=== PATIENT | female | born 1955 | race Caucasian/White ===

== ENCOUNTER 2022-07-06 17:56 | Emergency (ER) | payer OTHER ==
--- OUTSIDE RECORDS SUMMARY | 2022-07-06 17:59 | XMS REPORT | Continuity of Care Document ---
:1955 Author Organization [facility] t Address [address] [place] [address] [place] [id number] Care Team Providers Name Role Phone Jeanne Attending Clinician Unavailable Mau Padilla Attending Clinician [phone] Mau Padilla Attending Clinician Unavailable Jeanne Admitting Clinician Unavailable Mau Padilla Admitting Clinician Unavailable Payers Payer Name Policy Type Policy Number Effective Date Expiration Date S ource [employer]MA[employer] (MEDICARE [id number] 2021 REPLACEMENT/ADVANT 00:00:00 AGE - PPO) [place]: [id number] 2021 NOVMinuteBuzzS EyeLock 00:00:00 [place] [id number] ADVANTAGE (HMO) 00:00:00 Problems Condition Condition Condition Status Onset Resolution Last Treating Co mments Source Name Details Category Date Date Treatment Clinician Date Osteoarthr Osteoarthr Problem Active A zalea itis of itis of 5-31 [facility] right knee Right Knee 00:00: di c joint Joint 00 Sports Medicin e Osteoarthr Osteoarthr Problem Active 2020-02 A zalea itis of itis of 1-11 [facility] knee Knee 00:00: dic 00 Sports Medicin e Allergies, Adverse Reactions, Alerts Allergy Allergy Status Severity Reaction(s) Onset Inactive Treating Comm ents Source Name Type Date Date Clinician levoflox DA Active DC RASH-UNKNOWN 2020-02 HC A acin 03-24 [place] 00:00: [facility] 00 [facility] Levaquin Allergy Active Rash 2020-02 Shanna to 2 Orthope substanc 00:00: dic e 00 Sports Medicin e levoflox DA Active DC RASH-UNKNOWN 2020-02 HC A acin 03-15 [place] 00:00: David 00 [facility] No Known DA Active U 2000-02 [facility] Contrast 0-16 [place] Allergie 00:00: [facility] s 00 dic [facility] No Known DA Active U 2000-02 [facility] Drug 016 [place] Allergie 00:00: Orthope s 00 dic Hosp[facility] No Known DA Active U 2000-02 [facility] Food 0-16 [place] Allergie 00:00: Orthope s 00 dic [facility] No Known DA Active U 2000-02 [facility] Other 016 [place] Allergie 00:00: Orthope s 00 dic [facility]ospita [facility] Social History Smoking Status Start Date Stop Date Source Never Smoker [facility] Medications Ordered Filled Start Stop Current Ordering Indication Dosage Frequency Signature Comments Components Source Medication Medication Date Date Medication? Clinician (SIG) Name Name Augmentin Augmentin No 1 TID Augmentin Shanna 500 mg-125 500 mg-125 500 mg-125 [facility] mg tablet mg tablet mg tablet dic Take 1 Take 1 Take 1 Sports tablet 3 tablet 3 tablet 3 Med icin times a day times a day times a e by oral by oral day by route for 3 route for 3 oral route days. days. for 3 days. meloxicam meloxicam No meloxicam Shanna 15 mg 15 mg 15 mg [facility] tablet TAKE tablet TAKE tablet dic 1 TABLET BY 1 TABLET BY TAKE 1 Sports MOUTH EVERY MOUTH EVERY TABLET BY Medicin DAY IN THE DAY IN THE MOUTH e MORNING MORNING EVERY DAY IN THE MORNING methylpredn methylpredn No methylpred Shanna isolone 4 isolone 4 nisolone 4 [facility] mg tablets mg tablets mg tablets dic in a dose in a dose in a dose Sports pack TAKE 6 pack TAKE 6 pack TAKE Medicin TABLETS ON TABLETS ON 6 TABLETS e DAY 1 DAY 1 ON DAY 1 DIRECTED ON DIRECTED ON PACKAGE AND PACKAGE AND DIRECTED DECREASE BY DECREASE BY ON PACKAGE 1 TAB EACH 1 TAB EACH AND DAY FOR A DAY FOR A DECREASE TOTAL OF 6 TOTAL OF 6 BY 1 TAB DAYS DAYS EACH DAY FOR A TOTAL OF 6 DAYS Synthroid Synthroid No Synthroid Shanna 125 mcg 125 mcg 125 mcg Orthop e tablet TAKE tablet TAKE tablet dic 1 TABLET BY 1 TABLET BY TAKE 1 Sports MOUTH EVERY MOUTH EVERY TABLET BY Medicin DAY IN THE DAY IN THE MOUTH e MORNING MORNING EVERY DAY IN THE MORNING amoxicillin amoxicillin No amoxicilli Shanna 500 500 n 500 Orthope mg-potassiu mg-potassiu mg-potassi dic m m Sports clavulanate clavulanate clavulanat Medicin 125 mg 125 mg e 125 mg e tablet TAKE tablet TAKE tablet 1 TABLET BY 1 TABLET BY TAKE 1 MOUTH THREE MOUTH THREE TABLET BY TIMES A DAY TIMES A DAY MOUTH FOR 3 DAYS FOR 3 DAYS THREE TIMES A DAY FOR 3 DAYS Medrol Medrol No Medrol Shanna (Kee) 4 mg (Kee) 4 mg (Kee) 4 mg Orth[facility] tablets in tablets in tablets in dic a dose pack a dose pack a dose Sports Take 1 Take 1 pack Take Medici n tablet by tablet by 1 tablet e mouth as mouth as by mouth directed directed as Take as Take as directed directed on directed on Take as package package directed on package meloxicam meloxicam No meloxicam Shanna 15 mg 15 mg 15 mg [facility] tablet TAKE tablet TAKE tablet dic 1 TABLET BY 1 TABLET BY TAKE 1 Sports MOUTH EVERY MOUTH EVERY TABLET BY Medicin DAY IN THE DAY IN THE MOUTH e MORNING MORNING EVERY DAY IN THE MORNING Synthroid Synthroid No Synthroid Shanna 125 mcg 125 mcg 125 mcg Orthop e tablet TAKE tablet TAKE tablet dic 1 TABLET BY 1 TABLET BY TAKE 1 Sports MOUTH EVERY MOUTH EVERY TABLET BY Medicin DAY IN THE DAY IN THE MOUTH e MORNING MORNING EVERY DAY IN THE MORNING amoxicillin amoxicillin No amoxicilli Shanna 500 mg 500 mg n 500 mg Orth[facility] tablet TAKE tablet TAKE tablet dic 1 TABLET BY 1 TABLET BY TAKE 1 Sports MOUTH THREE MOUTH THREE TABLET BY Medicin TIMES A DAY TIMES A DAY MOUTH e WITH MEALS WITH MEALS THREE TIMES A DAY WITH MEALS amoxicillin amoxicillin No amoxicilli Shanna 500 500 n 500 Orthope mg-potassiu mg-potassiu mg-potassi dic m m Sports clavulanate clavulanate clavulanat Medicin 125 mg 125 mg e 125 mg e tablet TAKE tablet TAKE tablet 1 TABLET BY 1 TABLET BY TAKE 1 MOUTH THREE MOUTH THREE TABLET BY TIMES A DAY TIMES A DAY MOUTH FOR 3 DAYS FOR 3 DAYS THREE TIMES A DAY FOR 3 DAYS azithromyci azithromyci No azithromyc Shanna n 250 mg n 250 mg in 250 mg Or thope tablet TAKE tablet TAKE tablet dic 2 TABLETS 2 TABLETS TAKE 2 Spo rts BY MOUTH BY MOUTH TABLETS BY M edicin TODAY, THEN TODAY, THEN MOUTH e TAKE 1 TAKE 1 TODAY, TABLET TABLET THEN TAKE DAILY FOR 4 DAILY FOR 4 1 TABLET DAYS DAYS DAILY FOR 4 DAYS cephalexin cephalexin No cephalexin Shanna 500 mg 500 mg 500 mg [facility] tablet TAKE tablet TAKE tablet dic 1 TABLET BY 1 TABLET BY TAKE 1 Sports MOUTH TWICE MOUTH TWICE TABLET BY Medicin A DAY FOR A DAY FOR MOUTH e 10 DAYS 10 DAYS TWICE A DAY FOR 10 DAYS codeine 10 codeine 10 No codeine 10 Shanna mg-guaifene mg-guaifene mg-guaifen Orthope sin 100 sin 100 esin 100 dic mg/5 mL mg/5 mL mg/5 mL Sports oral liquid oral liquid oral M edicin TAKE 1 TSP TAKE 1 TSP liquid e BY MOUTH BY MOUTH TAKE 1 TSP EVERY 6 EVERY 6 BY MOUTH HOURS HOURS EVERY 6 NEEDED FOR NEEDED FOR HOURS COUGH COUGH NEEDED FOR COUGH gatifloxaci gatifloxaci No gatifloxac Shanna n 0.5 % eye n 0.5 % eye in 0.5 % Orthope drops 1 drops 1 eye drops dic DROP IN DROP IN 1 DROP IN Spor ts BOTH EYES BOTH EYES BOTH EYES Medicin FOUR TIMES FOUR TIMES FOUR TIMES e A DAY FOR 7 A DAY FOR 7 A DAY FOR DAYS. DAYS. 7 DAYS. Medrol Medrol No Medrol Shanna (Kee) 4 mg (Kee) 4 mg (Kee) 4 mg Orth[facility] tablets in tablets in tablets in dic a dose pack a dose pack a dose Sports Take 1 Take 1 pack Take Medici n tablet by tablet by 1 tablet e mouth as mouth as by mouth directed directed as Take as Take as directed directed on directed on Take as package package directed on package meloxicam meloxicam No meloxicam Shanna 15 mg 15 mg 15 mg [facility] tablet TAKE tablet TAKE tablet dic 1 TABLET BY 1 TABLET BY TAKE 1 Sports MOUTH EVERY MOUTH EVERY TABLET BY Medicin DAY IN THE DAY IN THE MOUTH e MORNING MORNING EVERY DAY IN THE MORNING Synthroid Synthroid No Synthroid Shanna 125 mcg 125 mcg 125 mcg Orthop e tablet TAKE tablet TAKE tablet dic 1 TABLET BY 1 TABLET BY TAKE 1 Sports MOUTH EVERY MOUTH EVERY TABLET BY Medicin DAY IN THE DAY IN THE MOUTH e MORNING MORNING EVERY DAY IN THE MORNING Vital Signs Vital Name Observation Time Observation Value Comments Source Height 2022-04-08 00:00:00 67 [in_i] [facility] BMI (Body Mass 2022-04-08 00:00:00 42.8 kg/m2 [facility] Index) Sports Medicine Body Weight 2022-04-08 00:00:00 273 [lb_av] [facility] Height 2021-07-15 00:00:00 67 [in_i] [facility] BMI (Body Mass 2021-07-15 00:00:00 42.8 kg/m2 [facility] Index) Sports Medicine Body Weight 2021-07-15 00:00:00 273 [lb_av] [facility] Procedures Procedure Date / Time Performed Performing Clinician [facility] e XR, knee, 1 or 2 view 2022-04-08 00:00:00 [facility] XR, knee, 1 or 2 view 2021-10-21 00:00:00 [facility] Arthroplasty of Knee 2021-01-21 00:00:00 [facility] Arthroscopy of Knee [facility] Plan of Care Planned Activity Planned Date Details Comments Source Instructions [facility] Encounters Start End Encounter Admission Attending Care Care Encounter Source Date/Time Date/Time Type Type Clinicians Facility Department ID 2022-04-08 2022-04-08 Outpatient FOG_Mohsen_R AO AO [id number] Shanna 00:00:00 00:00:00 [place] [id number] Ortho pe dic Sports Medicin e 2022-04-08 2022-04-08 Mau San AOSAMMY [place] - Ortho Shanna 00:00:00 00:00:00 MD Mohsen: Lilian Uribe [id number] [facility] [place], [address] [place] [address] , Ph. [phone] 2021-12-10 2021-12-10 Outpatient FOG_Mohsen_R AOSM AO [id number] Shanna 00:00:00 00:00:00 Santos [id number] Ortho pe dic Sports Medicin e 2021-12-10 2021-12-10 Outpatient FOG_Burke_R AOSM AOSM [id number] Shanna 00:00:00 00:00:00 Santos [id number] Ortho pe dic Sports Medicin e 2021-12-10 2021-12-10 Outpatient FOG_Burke_R AOSM AOSM [id number] Shanna 00:00:00 00:00:00 [place] [id number] Ortho pe dic Sports Medicin e 2021-12-10 2021-12-10 Outpatient FOG_Burke_R AOSM AOSM [id number] Shanna 00:00:00 00:00:00 Santos [id number] Ortho pe dic Sports Medicin e 2021-10-21 2021-10-21 Outpatient FOG_Burke_R AOSM AOSM [id number] Shanna 00:00:00 00:00:00 Santos [id number] Ortho pe dic Sports Medicin e 2021-10-21 2021-10-21 Mau San AOSM [place] - Ortho Shanna 00:00:00 00:00:00 MD Mohsen: Lilian Uribe [id number] [place], [place] [address], [place] [address] , Ph. [phone] 2021-10-21 2021-10-21 Outpatient Mohsne, AOSM AOSM [id number] 00:00:00 00:00:00 Mau San [id number] 2021-10-18 2021-10-18 Outpatient FOG_Burke_R AOSM AOSM [id number] Shanna 00:00:00 00:00:00 Santos [id number] Ortho pe dic Sports Medicin e 2021-10-16 2021-10-16 Outpatient FOG_Burke_R AOSM AOSM [id number] Shanna 00:00:00 00:00:00 [place] [id number] Ortho pe dic Sports Medicin e 2021-09-02 2021-09-02 Outpatient FOG_Burke_R AOSM AOSM [id number] Shanna 00:00:00 00:00:00 Santos [id number] Ortho pe dic Sports Medicin e 2021-07-16 2021-07-16 Outpatient FOG_Burke_R AOSM AOSM [id number] Shanna 10:09:00 10:09:00 Santos [id number] Ortho pe dic Sports Medicin e 2021-07-15 2021-07-15 Outpatient FOG_Burke_R AOSM AOSM [id number] Shanna 02:13:00 02:13:00 [place] [id number] Ortho pe dic Sports Medicin e 2021-07-15 2021-07-15 Mau Jaswinder AOSM [place] - Ortho Shanna 00:00:00 00:00:00 MD Mohsen: Lilian Barron [facility] [id number] [place], [address], [place] [address] , Ph. [phone] 2021-07-15 2021-07-15 Outpatient JOSE Padilla AOSM [id number] 00:00:00 00:00:00 Mau San [id number] 2021-01-21 2021-01-22 Inpatient EL MANOJ PadillaTO SURG [id number] [facility] 07:32:00 12:43:00 Mau Bradley [facility]ope [facility] Hosp[facility] 2021-01-13 2021-01-13 Outpatient MANOJ Padilla LABO [id number] [facility] 17:07:00 17:07:00 Mau Abbasi [facility] Results Test Description Test Time Test Comments Results Result [facility] e Comments - XR KNEE 1 OR 2 V 2021-01-22 [facility] 12:49:00 [facility] 1955 Sex: F Patient Name: SHAYNE MAGANA Unit No: [id number] EXAMS: CPT CODE: [id number] XR KNEE 1 OR 2 V [place] [id number] IMAGES PROVIDED: 2 FINDINGS: Postoperative changes from right total knee arthoplasty demonstrated without evidence of immediate complication. No acute fracture is visualized. IMPRESSION: Postoperative exam as above. at 1249 Reported and signed by: Gorge Ernandez M.D. CC: Mau Padilla MD Technologist: JUS BOYLE. RT(R) Transcribed D/ (9978) [facility]: [facility] [address] [facility] PHYS: Mau Martin MD : 1955 AGE: 65 SEX: F [place], [place] [address] LOC: Y.310 A PHONE #: [phone] EXAM DATE: 01/21/2021 STATUS: DIS IN FAX #: [phone] RAD #: [id number] D/C DT 01/22/2021 PAGE 1 Signed Report Patient Name: SHAYNE MAGANA Unit No: [id number] EXAMS: CPT CODE: [id number] XR KNEE 1 OR 2 V RT [id number] (Continued) Orig Print D/T: S: 01/22/2021 (1252) [facility] NAME: SHAYNE MAGANA [address] [facility] PHYS: Mau Martin MD : 1955 AGE: 65 SEX: F [place], [place] [address] LOC: Y.310 A PHONE #: [phone] EXAM DATE: 01/21/2021 STATUS: DIS IN FAX #: [phone] RAD #: [id number] D/C DT 01/22/2021 PAGE 2 Signed Report BASIC METABOLIC PANEL 2021-01-22 06:45:00 Test Item Value Reference Range Interpretation Comme nts SODIUM (test code = NA) 140 mmol/L 136-145 N POTASSIUM (test code = K) 4.8 mmol/L 3.5-5.1 N CHLORIDE (test code = CL) 101.0 mmol/L 98-107 N CARBON DIOXIDE (test code = 25.5 mmol/L 21-32 N CO2) GLUCOSE (test code = GLU) 126 mg/dL 70-110 H BLOOD UREA NITROGEN (test code 12 mg/dL 7-18 N = BUN) GLOMERULAR FILTRATION RATE 66.0 >60 U nit of measure: mL/min/1.73 (test code = GFR) [id number] Range:Healthy Adults >90 mL/m in/1.73 m2 For Chronic Kidney Disease: Stage II Mild Decreas e in GFR 60-90 Stage III Moder ate Decrease in GFR 30-59 St age IV Severe Decrease in GFR 15-29 Stage V Kidney Failure <15 CREATININE (test code = CREAT) 0.86 mg/dL 0.55-1.30 N CALCIUM (test code = CA) 8.9 mg/dL 8.2-10.1 N SPECIMEN COMMENT: POD #[id number] 06:07:00 Test Item Value Reference Range Interpretation Comments HEMOGLOBIN (test code = HGB) 12.8 g/dL 12-16 N HEMATOCRIT (test code = HCT) 41.3 % 37-47 N SPECIMEN COMMENT: POD #1Novel Coronavirus 2019 [id number] 03:17:00 Test Item Value Reference Range Interpretation Comments Novel Coronavirus Negative Negative Positive r esults are 2019 Inhouse (test indicativ e of the presence code = COVNONPUI) ofSARS-CoV -2 RNA, clinical correlation wit h patient historyand othe r diagnostic info rmation is necessary to determinepatien t infection status. Positiv e results do not rule out bacterial infection or co -infection with other viru ses. Negative result s do not preclude SARS-C oV-2 infection andsh ould not be used as the devaughn e basis for patient managementdecis ions. Negative result s must be combined with otherclinical observations, p atient history, and epidemiological information . Detection of SARS-CoV-2 RNA may be affe cted bysample collec tion methods, storag e conditions, and /or stageof infection. Asia l RNA mutations, vacc inations, antiviraltherap eutics, antibiotics, chemotherapeuti c orimmunosuppres александр drugs have not been e valuated for effectson d etection. Results are for the identification of SARS-CoV-2 RNA usingthe Wells M2000 Sy stem under the [facility] Emergen cy UseAuthorizatio n. The testing is perf ormed by personneltraine d in the procedures for the Wells M2000 molecular diagnostic SARS-CoV-2 assa y in vitro. Novel Coronavirus 2018 [id number] 03:17:00 Test Item Value Reference Range Interpretation Comments Novel Coronavirus Negative Negative Positive r esults are 2019 Inhouse (test indicativ e of the presence code = COVNONPUI) ofSARS-CoV -2 RNA, clinical correlation wit h patient historyand othe r diagnostic info rmation is necessary to determinepatien t infection status. Positiv e results do not rule out bacterial infection or co -infection with other viru ses. Negative result s do not preclude SARS-C oV-2 infection andsh ould not be used as the devaughn e basis for patient managementdecis ions. Negative result s must be combined with otherclinical observations, p atient history, and epidemiological information . Detection of SARS-CoV-2 RNA may be affe cted bysample collec tion methods, storag e conditions, and /or stageof infection. Asia l RNA mutations, vacc inations, antiviraltherap eutics, antibiotics, chemotherapeuti c orimmunosuppres александр drugs have not been e valuated for effectson d etection. Results are for the identification of SARS-CoV-2 RNA usingthe Wells M2000 Sy stem under the FDA Emergen cy UseAuthorizatio n. The testing is perf ormed by personneltraine d in the procedures for the Wells M2000 molecular diagnostic SARS-CoV-2 assa y in vitro. COMPREHENSIVE METABOLIC [id number] 13:43:00 Test Item Value Reference Range Interpretation Comments SODIUM (test code = 143 mmol/L 136-145 N NA) POTASSIUM (test code = 4.5 mmol/L 3.5-5.1 N K) CHLORIDE (test code = 105.0 mmol/L 98-107 N CL) CARBON DIOXIDE (test 28.7 mmol/L 21-32 N code = CO2) GLUCOSE (test code = 81 mg/dL 70-110 N GLU) BLOOD UREA NITROGEN 12 mg/dL 7-18 N (test code = BUN) GLOMERULAR FILTRATION 79.8 >60 Unit o f measure: RATE (test code = GFR) mL/mi n/1.73 [id number] Range:Healthy Adults >90 mL/min/1.73 m2 For Chronic Kidney Disease: Stage II Mild Decrease i n GFR 60-90 Stage III Moderate Decrea se in GFR 30-59 St age IV Severe Decre ase in GFR 15-29 St age V Kidney Failur e <15 CREATININE (test code 0.73 mg/dL 0.55-1.30 N = CREAT) TOTAL PROTEIN (test 7.3 g/dL 6.4-8.2 N code = PROT) ALBUMIN (test code = 3.5 g/dL 3.4-5.0 N ALB) GLOBULIN (test code = 3.8 g/dL 2.2-4.2 N GLOB) ALBUMIN/GLOBULIN RATIO 0.9 0.7-2.0 N (test code = A/G) CALCIUM (test code = 9.0 mg/dL 8.2-10.1 N CA) BILIRUBIN TOTAL (test 0.40 mg/dL 0.2-1.00 N code = BILT) SGOT/AST (test code = 12.0 U/L 15-37 L AST) SGPT/ALT (test code = 21.0 U/L 12-78 N Please note new ALT) normal range. ALKALINE PHOSPHATASE 71 U/L 46-116 N TOTAL (test code = ALKP) CBC W/AUTO [id number] 13:43:00 Test Item Value Reference Range Interpretation Comments WHITE BLOOD CELL (test code = WBC) 7.2 K/mm3 5.8-11.0 N RED BLOOD CELL (test code = RBC) 4.52 M/mm3 4.2-5.4 N HEMOGLOBIN (test code = HGB) 13.5 g/dL 12-16 N HEMATOCRIT (test code = HCT) 42.2 % 37-47 N MEAN CELL VOLUME (test code = MCV) 93 fL 80-98 N MEAN CELL HGB (test code = MCH) 29.9 pg 27-34 N MEAN CELL HGB CONCENTRATION (test 32.0 g/dL 30.8-34.1 N code = MCHC) RED CELL DISTRIBUTION WIDTH (test 13.6 % 11-16 N code = RDW) PLT (test code = PLT) 252 K/mm3 130-400 N MEAN PLATELET VOLUME (test code = 9.8 fL 8.9-12.1 N MPV) NEUTROPHIL % (test code = NT%) 68.5 % 45-70 N LYMPHOCYTE % (test code = LY%) 18.7 % 20-40 L MONOCYTE % (test code = MO%) 8.6 % 3-10 N EOSINOPHIL % (test code = EO%) 2.4 % 1-5 N BASOPHIL % (test code = BA%) 1.2 % 0.0-1.1 H NEUTROPHIL # (test code = NT#) 4.94 K/mm3 2.00-7.50 N LYMPHOCYTE # (test code = LY#) 1.35 K/mm3 1.50-4.00 L MONOCYTE # (test code = MO#) 0.62 K/mm3 0.2-0.8 N EOSINOPHIL # (test code = EO#) 0.17 K/mm3 0.04-0.4 N BASOPHIL # (test code = BA#) 0.09 K/mm3 0.02-0.10 N MANUAL DIFF REQUIRED (test code = NO MANUAL DIFF MDIFF) NUCLEATED RED BLOOD CELL (test 0 % 0-0 N code = NRBC) Notes Date/Time Note Provider Source 2021-01-22 09:51:00-00:[address] [facility] ([facility] Clinical Note REPORT#:[id number] REPORT STATUS: Signed DATE:01/22/21 TIME: 950 PATIENT: SHAYNE MAGANA UNIT #: [id number] [facility] AGE: 65 SEX: F ATTEND: Cesario Padilla MD ADM AUTHOR: Frankie Tao MD * ALL edits or amendments must be made on the el ectronic/computer document * Clinical Note Note: [facility] Frankie chris M.D. (cell text [phone]) Assessment/Plan 1.) Anemia of acute blood loss- .Hgb 12.8, asymp tomatic. 2.) S/p Right TKA- .acute multi-modal pain contr ol and followup. Anticoagulation as per Dr. Padilla. 3.) Hypothyroid- .T4 replacement. 4.) OsteoArthritis Morbid Obesity[BMI 49 .6]- .continue on Rx. Body habitus may slow rehab. * OK for DISCHARGE per Internal Medicine. Prior Events/Overnight: Uneventful. Chief Complaint: No significant complaints. Objective Vital Signs Date Temp Pulse Resp B/P B/P Mean Pulse Ox FiO2 01/21-01/22 96.3-98.5 78-96 12-18 103-155/64-85 79.6-106.3 92-100 28-44 Gen: Alert, oriented, in mild discomfort Neck: No Masses, No Thyromegaly- CV: Regular Rate Rhythm / Edema- no significant Resp: Clear To Ascultation / Normal Respiratory Effort ABD: NonTender / NonDistended MS/Skin: No sign of compartment syndrome / +ankl e DF/PF Other: Labs/X-ray: Laboratory Tests: 01/22 020 Chemistry Sodium (136 - 145 mmol/L) 140 Potassium (3.5 - 5.1 mmol/L) 4.8 Chloride (98 - 107 mmol/L) 101.0 Carbon Dioxide (21 - 32 mmol/L) 25.5 BUN (7 - 18 mg/dL) 12 Creatinine (0.55 - 1.30 mg/dL) 0.86 Glomerular Filtr Rate (>60) 66.0 Glucose (70 - 110 mg/dL) 126 H Calcium (8.2 - 10.1 mg/dL) 8.9 Hematology Hgb (12 - 16 g/dL) 12.8 Hct (37 - 47 %) 41.3 Frankie River M.D. at 1117 RPT #:[id number] END OF REPORT 2021-01-22 09:10:00-00:[address] [facility] ([facility]) Discharge Summary REPORT#:[id number] REPORT STATUS: Signed DATE:01/22/21 TIME: 909 PATIENT: SHAYNE MAGANA UNIT #: [id number] ROOM/BED: [address] : 53 AGE: 65 SEX: F ATTEND: Cesario Padilla MD ADM AUTHOR: Leana Varner * ALL edits or amendments must be made on the el ectronic/computer document * General Information Date of admission: Observation Start Date: 01/21/21 Date of admission: 01/21/21 Discharge date: 01/22/21 Admission diagnosis: Right Knee Osteoarthritis Discharge diagnosis: Same Hospital course: The patient underwent the pr ocedure without incident. Findings were significant for degenerative disease of the knee. The patien t was hemodynamically and medically monitored during the post op period. A nticoagulation was instituted for post op DVT prophylaxis. The patient was progressively able to tolerate PO pain medications and the appropriate diet. PT wa s instituted, with a progressive ability to ambulate and performed ex ercises. The patient was eventually deemed stable and safe for discharge. Despite factors which projected a longer hospita l stay, the patient fulfilled criteria for earlier than expected disch arge, including control of pain, early mobilization with PT and stable hemodynamic stat us. At discharge the patient was comfortable with a controlled pain level. There were no chest or abdominal symptoms present. Dis charge physical exam demonstrated stable vitals and no acute distress . The patient had an intact dressing with no significant drainage and no power f tenderness. There were no neurologic or vascular deficits or changes from the preop states. Consultants: internal medicine Pt. condition on discharge: stable Allergies: Allergies: levofloxacin (From LEVAQUIN) (Coded, Mild, RASH- UNKNOWN, 01/21/21) Med Rec Med Rec Discharge meds: Stop taking the following medications: ETODOLAC (LODINE) 500 MG TAB 500 MILLIGRAM ORAL DAILY. Continue taking these medications: LEVOTHYROXINE (SYNTHROID) 125 MCG TAB 125 MICROGRAM ORAL DAILY. [TUMERIC] 1,000 MILLIGRAM ORAL DAILY. GLUCOSAMINE/D3/BOSWELLIA SANTOS (OSTEO BI-FLEX) 1 ,500 MG-400 UNIT-100 MG TAB 1 TABLET ORAL DAILY. ACETAMINOPHEN (TYLENOL) 500 MG TAB 500 MILLIGRAM ORAL EVERY 4 HOURS NEEDED. as needed for PAIN Treatments Procedures Treatments Procedures: Procedure: Right Total Knee Arthroplasty Lab: Chemistry last 24 hrs: 01/22 200 Chemistry Sodium (136 - 145 mmol/L) 140 Potassium (3.5 - 5.1 mmol/L) 4.8 Chloride (98 - 107 mmol/L) 101.0 BUN (7 - 18 mg/dL) 12 Creatinine (0.55 - 1.30 mg/dL) 0.86 Glucose (70 - 110 mg/dL) 126 H Hematology last 24 hrs: 01/22 200 Hematology Hgb (12 - 16 g/dL) 12.8 Hct (37 - 47 %) 41.3 Discharge Instructions PCP )( Discharge to: Home/Self Care Discharge Instructions Additional Discharge Routines: Attending Follow- Up, Wound/Dressing Care )( Diet: Res Diet )( Weight monitoring: Not Required )( Activity: As Tolerated )( Wound/dressing care: Leave dressing in place, OK to shower tomorrow Prescriptions: e-prescribe Rx drug database reviewed: yes Follow-up Appointments Attending Physician: Attending Physician: Mau Padilla MD Attending physician follow up timeframe: In 1-2 weeks Electronically Signed by Leana Varner on 1 03/25/20 at 0913 Electronically Signed by Mau Padilla MD on at 1526 RPT #:[id number] END OF REPORT 2021-01-21 16:44:00-00:[address] [facility] ([facility]) Clinical Note REPORT#:[id number] REPORT STATUS: Signed DATE:01/21/21 TIME: 1643 PATIENT: SHAYNE MAGANA UNIT #: [id number] [facility] AGE: 65 SEX: F ATTEND: Cesario Padilla MD ADM AUTHOR: Frankie Tao MD * ALL edits or amendments must be made on the el ectronic/computer document * Clinical Note Note: [facility] Frankie chris MD (cell text [phone]) Internal Medicine Consult at request of : Dr. Elenita Padilla Chief Complaint: right knee pain HPI: 65yo F is now s/p Right Total Knee Arthropl asty (TKA) by Dr. Padilla. Ms. Magana relates 12 years of progressive ri ght knee pain (recently severe), worse with activity, and popping crunchy with restricted motion at times in quality. Clinical as well as radiographic evaluation reve aled severe tricompartmental arthropathy. She has failed conservative managem ent. Comorbidities: see below. PmHx: .Hypothyroidism, BMI 49.3, osteoarthritis ALLERGY: Allergies: levofloxacin (From [employer]) (Coded, Mild, RASH- UNKNOWN, 01/21/21) Home Medications: Home Medications: LEVOTHYROXINE (SYNTHROID) 125 MCG PO DAILY ETODOLAC (LODINE) 500 MG PO DAILY [TUMERIC] 1,000 MG PO DAILY GLUCOSAMINE/D3/BOSWELLIA SANTOS (OSTEO BI-FLEX) 1 TAB PO DAILY ACETAMINOPHEN (TYLENOL) 500 MG PO Q4H PRN PRN PA IN SgHx: . Right knee arthroscopy x 2 SHx: Tob: none FHx: .No significant hx of DVT/PE . Alcohol: 1 nighly Drugs: none Lives: with son Vitals: Vital Signs Date Temp Pulse Resp B/P B/P Mean Pulse Ox FiO 2 01/21 97.5-98.5 78-85 14-18 133-166/69-85 105.8 -106.3 92-100 Gen: Alert, in mild discomfort, nl nutrition. EYE: Nl lids conjunctiva. ENT: Nl ears Nose, nl lips,. Neck: Supple, nl thyroid, No masses. CV: Regular Rate Rhythm, no heave or significant murmur. Edema- none RESP: Clear to Auscultation, normal Respiratory effort. ABD: Soft, NonDistended,. LYM: No significant cervical Lymphadenopathy. MS: No sign of compartment syndrome, Knee is wra pped, drain in place NEURO: Nonfocal, grossly normal sensation of LE, +Ankle DF/PF . Preop Labs (01/13/2021): CBC:. Hgb 13.5, Plt 252, CHEM: Na 143, K 4.5, C r 0.73 (eGFR 79.8%), . Ekg: NSR (medium to high risk of complications or morbidi ty) (major surgery) (IV sedative, meds) Assessment Plan 1.) Anemia of Acute Blood Loss- .will recheck to gab. 2.) S/p Right TKA- .acute multi-modal pain contr ol and followup. Anticoagulation as per Dr. Padilla. 3.) Hypothyroid- .T4 replacement. 4.) OsteoArthritis Morbid Obesity[BMI 49 .6]- .continue on Rx. Body habitus may slow rehab. Frankie River M.D. Thanks! G8427 - current medications obtained and demare juana G8730 - pain assessment with tool and followup p ernestine 1126F - offered discussion o n advanced care plan and patient declined to address issue at this time. at 2216 [facility] #:[id number] END OF REPORT 2021-01-21 12:37:00-00:00 [id number] [place] [address] PATIENT NAME: SHAYNE MAGANA ADMIT DATE: 01/21/21 ACCOUNT NO: [id number] ROOM NO: Y.310 AGE: 65 REPORT TYPE: OPERATIVE REPORT SEX: F ADMITTING PHYSICIAN:Mau Padilla MD ATTENDING PHYSICIAN:Mau Padilla MD OPERATION DATE: 01/21/2021 PREOPERATIVE DIAGNOSIS: Right knee osteoarthropa thy. POSTOPERATIVE DIAGNOSIS: Right knee osteoarthrop athy, M17.11. OTHER DIAGNOSIS NOTED: Morbid obesity. OPERATIVE PROCEDURES PERFORMED: 1. Computer-assisted imageless right total knee arthroplasty, 91326. 2. 55709. 3. A 22 modifier secondary to morbid obesity req uiring the second assembler surgical garment for surgical exposure. SURGEON: Mau Padilla MD MANAGER HYDRAULIC: RENE Bryant BAILER TENDERS SUPERVISOR: ANESTHESIA: General. TOURNIQUET TIME: 26 minutes. ESTIMATED BLOOD LOSS: 55 mL. OPERATIVE FINDINGS: Severe grade 4 osteoarthriti s, right knee. SURGICAL SPECIMEN SENT: None. CLINICAL INDICATIONS: Ms. Ti sampson is a very pleasant 65-year-old female from [place], [place], who has been having severe and p rogressive pain involving her right knee. Her pain is occurring on a daily bas is. Her pain has been refractory to extensive nono perative treatment. Due to her progressive pain and lack of response to nonoperative treatment, she is admitted for computer-assisted imageless right total knee art hroplasty, 22-modifier is indicated due to her morbid obesity with a requi rement of a second assembler surgical garment for surgical exposure. OPERATIVE NARRATIVE: 1. COMPUTER-ASSISTED IMAGELESS RIGHT TOTAL KNEE ARTHROPLASTY, 19260. 2 67032. PATIENT NAME: SHAYNE MAGANA 771 Ms. Magana was brought to the operative s uite, at which time, she was placed in supine position on the OR table. Routine monitor s were established. General anesthesia was delivered. Af ter satisfactory induction of general anesthesia, a tourniquet was applied to th e patient's right lower extremity per Ms. Varner and the right leg was circumfere ntially prepped and draped in usual sterile fashion per Ms. Varner. The leg was then elevated, exsan guinated, tourniquet was insufflated to 350 mmHg. The knee was flexed to 100 degrees. Anterior midline incision was performed. Medial parapatellar arth rotomy was performed. Patella was everted laterally. Severe grade IV changes n oted through all three compartments. Hypertrophic osteophytes were rese cted. Ligament balancing was achieved. Medial and lateral menisci were excise d. Anterior and posterior cruciate ligaments resected. At this time, a centramedullary pin was placed i n the anatomic center of the distal femur and the OrthAlign guide was placed over the centramedullary pin. The OrthAlign guide was then pinned in 0 degrees of varus valgus angulation, 3 degrees of flexion. The distal 10 mm of the femur was then resected. The guide was removed. The distal femur was appropriately sized and a size 6 cutting block was used to create the anterior, followed by posterior, followed by chamfer cuts. Appropriate osteotomy guide was th en placed across distal femur and the femoral notch was resected. Proximal tib ia was translated anteriorly. Utilizing extramedullary instrumentation, the pr oximal tibia was resected perpendicular to its mechanical axis resecting 1 0 mm from the lateral tibial plateau. The proximal tibia was appropri ately sized and a size 5 baseplate was noted to provide optimal cov erage. Appropriate rotatory alignment was achieved. The proximal tibia was appr opriately prepped. The patella was then resected so as to ensure yazidism of its normal height with prosthesis in place. Flexion as well as extension gaps were checked a nd noted to be equal. Trial components were placed into the joint. Optimal stability wa s noted utilizing a 5 mm insert, 0 degrees of gravity extension with 120 degrees of gravity flexion were present. Further flexion was inhibited to the pa tient's soft tissue, adipose tissue. There was no varus or valgus ins tability noted. The knee was stable in both flexion as well as extension. The t rial components were removed. The bony surfaces were prepared with cement implantation utilizing pulsatile lavage irrigation. The tibial tray was cemented into pl darlyn followed by cement implantation of femoral component. Polyethylene insert was then placed on tibial tray and the knee was placed in full exte nsion. Patellar component was cemented. Tourniquet deflated. Meticulous hemost asis achieved with Bovie electrocautery. Copious antibiotic lavage was pe rformed. Medium Hemovac drain was then placed deep to the extensor mec hanism and the knee was placed into 70 degrees of flexion. Arthrotomy closed in waterti ght fashion 2.0 Quill suture. Skin closure with interrupted 0 Vicryl, followed by 2-0 Vicryl, followed by surgical gerard per Ms. Varner. A steri le dressing was applied by Ms. Varner. The patient was then extubated, taken to recovery room awake and alert without any anesthetic or operative complications. At th e end of the case, sponge and needle counts were correct x2. During th e procedure, Ms. Varner was invaluable in positioning the patient with preparation and draping of extremity. She was also responsible for providing surgical exposure throughout the procedure in addition to closure of the postoperative incisio ns and application of postoperative dressing. Utilizing the OrthAlign guidance system can dramatically reduce intraoperative and postoperative blood loss due to lack of creation of intramedullary tunnel in PATIENT NAME: SHAYNE MAGANA 771 the distal femur. Also, studies have shown the a ccuracy of distal femoral resection is greatly enhanced utilizing the Orth Align guidance system. Dictated By: Mau Padilla MD WT: OP:ARSH/DORY/MARCELA Conf#: [id number]/DID#: [id number] Authenticated by Mau Padilla MD On 06:32:33 AM Electronically Signed by Mau Padilla MD on 1 03/25/20 at 0632 PATIENT NAME: SHAYNE MAGANA 771 2021-01-21 10:48:00-00:[address] [facility] ([facility]) Brief Op Note REPORT#:[id number] REPORT STATUS: Signed DATE:01/21/21 TIME: 1048 PATIENT: SHAYNE MAGANA UNIT #: [id number] ROOM/BED: [place] [address] : 54 AGE: 65 SEX: F ATTEND: Cesario Padilla MD ADM AUTHOR: Leana Varner * ALL edits or amendments must be made on the el [employer]/computer document * Op/Inv Proc Note - Brief Pre-procedure diagnosis: Right Knee Arthritis Post-procedure diagnosis: same as pre procedure dx Procedures performed: Right Total Knee Arthroplasty Primary Surgeon: Mohsen Pleat Taper(s): Gardenia HALEY Findings: as above Complications: none Estimated blood loss in ml's: 25cc Specimens removed/altered: none at 1049 Electronically Signed by Mau Padilla MD on at 1237 RPT #:[id number] END OF REPORT 2021-01-19 17:38:00-00:00 [id number] [place] [address] PATIENT NAME: SHAYNE MAGANA ADMIT DATE: ACCOUNT NO: [id number] ROOM NO: AGE: 65 REPORT TYPE: HISTORY AND PHYSICAL SEX: F ADMITTING PHYSICIAN: ATTENDING PHYSICIAN:Mau Padilla MD ADMISSION DATE: 01/21/2021 ADMITTING DIAGNOSIS: Right knee osteoarthritis, M17.11. HISTORY OF PRESENT ILLNESS: Ms. 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 The pain has become quite severe over the past 2 years. The pain is currently affecting her zeynep y activities as well as her work. Her pain has been refractory to extensive nonoperative interventio n. Her clinical as well as radiographic evaluation revealed severe tricompa rtmental arthropathy. Due to her significant disability and lack of r esponse to nonoperative treatment, Ms. Magana is admitted for comput er-assisted imageless right total knee arthroplasty. PAST MEDICAL HISTORY: Kaushal's hypothyroidism as well as pneumonia. PAST SURGICAL HISTORY: Surgeries include a knee arthroscopy, partial hysterectomy. FAMILY HISTORY: Unremarkable. SOCIAL HISTORY: She is . 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 She neither smokes nor does she drink. MEDICATIONS: Consist of Synthroid, Toradol, and Osteo Bi-Flex. ALLERGIES: LEVAQUIN. REVIEW OF SYSTEMS: Negative. PHYSICAL EXAMINATION: VITAL SIGNS: Evaluation revealed her to be 5 fee t 7 inches tall and 124 kg. HEENT: Within normal limits. CARDIAC: Regular rate and rhythm. No murmur. CHEST: Clear. ABDOMEN: Benign. BACK: No CVA tenderness. EXTREMITIES: Leg lengths are equal. Full painles s motion of both hips. Examination of the right knee reveals an antalgi c gait. She has a valgus deformity. She has painful passive motio n. She has 0 to 105 degrees of motion. There is no instability. Her distal neurovascul ar status is intact. IMAGING: Radiographic evaluation reveals valgus alignment with bone on bone PATIENT NAME: SHAYNE MAGANA 771 disease. ASSESSMENT: Right knee pain secondary to severe osteoarthritis. SURGICAL PLAN: Computer-assisted imageless right total knee arthroplasty. I have gone over at length with the patient the as sociated risks involved with this procedure. She understands these in clude but are not limited to bleeding, infection, transfusion requi rement, neurovascular damage, leg length inequality, loosening of the prosthesis requiring possible r evision, painful scar, persistent limp, loss of motion, deep ve in thrombi leading to pulmonary emboli along with complications secondary to an esthesia. Furthermore, she understands that there are no guarantees or warranties that she would be pain free as a result of the procedure. She understands that sh e would receive a rotating platform posterior cruciate sacrificing total kn ee arthroplasty. Ms. Magana accepts these risks and gives her informed conse nt to proceed. Dictated By: Mau Padilla MD WT: HP:ARSH/DORY/NTS Conf#: [id number]/DID#: [id number] Authenticated by Mau Padilla MD On 08:27:18 AM Electronically Signed by Mau Padilla MD on 1 03/23/20 at 0827 PATIENT NAME: SHAYNE MAGANA 5771 2021-01-13 11:48:00-00:00 [id number] [place] [address] PATIENT NAME: SHAYNE MAGANA ADMIT DATE: ACCOUNT NO: [id number] ROOM NO: AGE: 65 REPORT TYPE: ELECTROCARDIOGRAM SEX: F ADMITTING PHYSICIAN: ATTENDING PHYSICIAN:Mau Padilla MD Order: [id number] Test Reason : PREOP CLEARANCE / AGE>50 Test Date/Time Stamp: WedJan 13 2021 11:48:52 Blood Pressure : / mmHG Vent. Rate : 086 BPM Atrial Rate : 086 BPM P-R Int : 168 ms QRS Dur : 084 ms QT Int : 366 ms P-R-T Axes : 060 001 056 degree s QTc Int : 437 ms Normal sinus rhythm Normal ECG No previous ECGs available Confirmed by GRETA WASHINGTON MD ([id number]) on 01/16/2021 11:45:27 AM Referred By: Mau Padilla Confirmed by:GRETA WASHINGTON MD Electronically Signed by Greta Washington MD on 04/07 at 1145 PATIENT NAME: SHAYNE MAGANA 771
[2022-07-06 19:06] LABS: Absolute Lymphocytes (CBC) 1.9 K/uL (0.7-4.9); Lymphocytes % 27.4 % (15.3-44.8); MPV 7.3 fL (7.6-11.3); RBC Red Blood Cell Count 4.34 M/uL (3.86-4.86)
[2022-07-06 19:18] LABS: Potassium 3.7 mEq/L (3.5-5.1)
--- NOTE | 2022-07-06 19:49 | RAD REPORT ---
EXAM DESCRIPTION: US - Transvaginal Study Probe - 07/06/2022 6:50 pm CLINICAL HISTORY: vaginal bleeding, pelvic pain Pelvic pain. COMPARISON: No comparisons FINDINGS: The uterus is normal in size, shape and echotexture. The uterus measures 9.4 x 5.5 x 5.3 c m. There is a large echogenic mass lesion in the fundal endometrium measuring 4.2 x 2.5 cm. Neither ovary well seen likely due to atrophy. No significant pelvic ascites. IMPRESSION: Echogenic mass in the fundal endometrium 4.2 x 2.5 cm.Primary differential would include endometrial polyp, fibroid or endometrial carcinoma. Recommend direct visualization with hysteroscop y.
--- NOTE | 2022-07-06 20:04 | ER ---
Nurse's Notes [facility] Name: Rena Stevens Age: 66 yrs Sex: Female : 1955 Arrival Date: 07/06/2022 Time: 17:56 Bed 8 Private MD: Santo Lunsford T Diagnosis: Uterine Bleeding Presentation: 07/06 18:30 Chief complaint: Patient states: Moderate vaginal bleeding since this morning, 15 years jl7 post menopause. Coronavirus screen: At this time, the client does not indicate any symptoms associated with coronavirus-19. Ebola Screen: No symptoms or risks identified at this time. Initial Sepsis Screen: Does the patient meet any 2 criteria? No. Patient's initial sepsis screen is negative. Does the patient have a suspected source of infection? No. Patient's initial sepsis screen is negative. Risk Assessment: Do you want to hurt yourself or someone else? Patient reports no desire to harm self or others. Onset of symptoms was July 06, 2022. 18:30 Method Of Arrival: Ambulatory [facility] 18:30 Acuity: MONIKA 3 jl7 Triage Assessment: 18:34 General: Appears in no apparent distress. uncomfortable, Behavior is calm, cooperative, jl7 appropriate for age. Pain: Complains of pain in right lower quadrant and left lower quadrant Pain currently is 4 out of 10 on a pain scale. Quality of pain is described as crampy. Neuro: Level of Consciousness is awake, alert, obeys commands, Oriented to person, place, time, situation. Cardiovascular: Patient's skin is warm and dry. Respiratory: Airway is patent Respiratory effort is even, unlabored, Respiratory pattern is regular, symmetrical. : Reports vaginal bleeding that is bright red, with clots. Derm: Skin is pink, warm \T\ dry. Historical: - Allergies: 18:34 Levaquin; jl7 - Home Meds: 18:34 Synthroid Oral [Active]; meloxicam oral [Active]; jl7 - PMHx: 18:34 Hypothyroidism; jl7 - PSHx: 18:34 right knee; jl7 - Immunization history:: Adult Immunizations unknown. - Social history:: Smoking status: Patient denies any tobacco usage or history of. Screenin:36 [facility] ED Fall Risk Assessment (Adult) History of falling in the last 3 months, jl7 including since admission No falls in past 3 months (0 pts) Confusion or Disorientation No (0 pts) Intoxicated or Sedated No (0 pts) Impaired Gait No (0 pts) Mobility Assist Device Used No (0 pt) Altered Elimination No (0 pt) Score/Fall Risk Level 0 - 2 = Low Risk Oriented to surroundings, Maintained a safe environment. Abuse screen: Denies threats or abuse. Denies injuries from another. Nutritional screening: No deficits noted. Tuberculosis screening: No symptoms or risk factors identified. Assessment: 18:36 Reassessment: US at bedside. jl7 20:27 Reassessment: No changes from previously documented assessment. Patient and/or family vc1 updated on plan of care and expected duration. Pain level reassessed. Patient is alert, oriented x 3, equal unlabored respirations, skin warm/dry/pink. Patient denies pain at this time. Vital Signs: 18:30 BP 145 / 88; Pulse 94; Resp 17; Temp 97.9; Pulse Ox 96% ; Weight 127.01 kg; Height 5 jl7 ft. 7 in. ; Pain 4/10; 18:30 Body Mass Index 43.85 (127.01 kg, 170.18 cm) jl7 18:30 Pain Scale: Adult jl7 ED Course: 17:58 Patient arrived in ED. mr 17:59 Santo Lunsford MD is Private Physician. mr 18:18 Rufus Megn PA is PHCP. [facility] 18:18 Gatito Rushing MD is Attending Physician. m 18:22 Deb Antunez, VIKKI is Primary Nurse. jl7 18:34 Triage completed. jl7 18:34 Arm band placed on right wrist. jl7 18:36 Patient has correct armband on for positive identification. Placed in gown. Bed in low jl7 position. Call light in reach. 18:52 US Transvaginal Study (Probe) In Process Unspecified. EDMS 19:01 BMP Sent. em1 19:01 CBC with Diff Sent. em1 19:01 Initial lab(s) drawn, by ky, sent to lab. Inserted saline lock: 20 gauge in left em1 antecubital area, using aseptic technique. Blood collected. 20:03 Mabel Barahona MD is Referral Physician. [facility] 20:25 No provider procedures requiring assistance completed. IV discontinued, intact, vc1 bleeding controlled, No redness/swelling at site. Pressure dressing applied. Administered Medications: No medications were administered Medication: 18:36 VIS not applicable for this client. jl7 Outcome: 20:03 Discharge ordered by . tiara 20:25 Discharged to home ambulatory. vc1 20:25 Condition: good 20:25 Discharge instructions given to patient, Instructed on discharge instructions, follow up and referral plans. Demonstrated understanding of instructions, follow-up care. 20:27 Patient left the ED. vc1 Signatures: Dispatcher [employer] EDMS Rufus Meng PA PA jmm Rivera, Lili mr Bj, Lazaro funes1 Deb Antunez RN RN jl7 Renee Law RN RN vc1
--- NOTE | 2022-07-06 20:04 | EDPHYS ---
Physician Documentation [facility] Name: Rena Stevens Age: 66 yrs Sex: Female : 1955 Arrival Date: 07/06/2022 Time: 17:56 Bed 8 Private MD: Santo Lunsford T ED Physician Gatito Rushing HPI: 07/06 18:19 This 66 yrs old Female presents to ER via Ambulatory with complaints of Vaginal jmm Bleeding. 18:19 The patient presents with vaginal bleeding that is. This is a 66 year old female with a [facility] history of hypothyroidism that presents to the ED with complaints of heavy vaginal bleeding, also passing clots. Denies weakness, shortness of breath. Patient does complain of some pelvic cramping. . Historical: - Allergies: 18:34 Levaquin; jl7 - Home Meds: 18:34 Synthroid Oral [Active]; meloxicam oral [Active]; jl7 - PMHx: 18:34 Hypothyroidism; jl7 - PSHx: 18:34 right knee; jl7 - Immunization history:: Adult Immunizations unknown. - Social history:: Smoking status: Patient denies any tobacco usage or history of. ROS: 18:19 Constitutional: Negative for fever, chills, and weight loss, Cardiovascular: Negative jmm for chest pain, palpitations, and edema, Respiratory: Negative for shortness of breath, cough, wheezing, and pleuritic chest pain. 18:19 : Positive for vaginal bleeding. 18:19 All other systems are negative. Exam: 18:19 Constitutional: This is a well developed, well nourished patient who is awake, alert, jmm and in no acute distress. Head/Face: atraumatic. Eyes: EOMI, no conjunctival erythema appreciated ENT: Moist Mucus Membranes Neck: Trachea midline, Supple Chest/axilla: Normal chest wall appearance and motion. Cardiovascular: Regular rate and rhythm. No edema appreciated Respiratory: Normal respirations, no respiratory distress appreciated Abdomen/GI: Non distended Back: Normal ROM Skin: General appearance color normal MS/ Extremity: Moves all extremities, no obvious deformities appreciated, no edema noted to the lower extremities Neuro: Awake and alert Psych: Behavior is normal, Mood is normal, Patient is cooperative and pleasant Vital Signs: 18:30 BP 145 / 88; Pulse 94; Resp 17; Temp 97.9; Pulse Ox 96% ; Weight 127.01 kg; Height 5 jl7 ft. 7 in. ; Pain 4/10; 18:30 Body Mass Index 43.85 (127.01 kg, 170.18 cm) [facility] 18:30 Pain Scale: Adult jl7 MDM: 18:19 Patient medically screened. [facility] 07/07 00:03 Differential diagnosis: Neoplasm uterine fibroids. Data reviewed: vital signs, nurses [facility] notes, radiologic studies, ultrasound. Counseling: I had a detailed discussion with the patient and/or guardian regarding: the historical points, exam findings, and any diagnostic results supporting the discharge/admit diagnosis, radiology results, the need for outpatient follow up, to return to the emergency department if symptoms worsen or persist or if there are any questions or concerns that arise at home. ED course: Normal cbc, advised to follow up telecommunications consultant for further evaluation of the mass. Otherwise given strict return precautions. Patient understood and agrees with the plan of care. . 07/06 18:23 Order name: CBC with Diff; Complete Time: 19:12 [facility] 07/06 18:23 Order name: BMP; Complete Time: 19:33 [facility] 07/06 18:23 Order name: US Transvaginal Study (Probe); Complete Time: 19:56 [facility] 07/06 18:23 Order name: Saline Lock; Complete Time: 19:01 [facility] Administered Medications: No medications were administered Disposition Summary: 07/06/22 20:03 Discharge Ordered Location: Home [facility] Condition: Stable [facility] Diagnosis - Uterine Bleeding [facility] Followup: [facility] - With: Mabel Barahona MD - When: 1 - 2 days - Reason: Recheck today's complaints, Continuance of care, Re-evaluation by your physician Discharge Instructions: - Discharge Summary Sheet [facility] - Abnormal Uterine Bleeding [facility] Forms: - Work release form [facility] - Medication Reconciliation Form [facility] - Thank You Letter [facility] - Antibiotic Education [facility] - Prescription Opioid Use [facility] Signatures: Dispatcher [employer] EDRufus Ferguson PA PA jmm Leal, Jahala, RN RN jl7
[2022-07-06 20:41] VITALS: BP 145/88; TEMP 97.9; O2SAT 96
== END 2022-07-06 20:27 | disposition home or self-care (01) ==
LOC: ER 17:56
DX: N93.9 Abnormal uterine and vaginal bleeding, unspecified (principal); E03.9 Hypothyroidism, unspecified; Z88.1 Allergy status to other antibiotic agents
CPT/HCPCS: 36415; 76830; 80048; 85025

== ENCOUNTER 2022-10-07 17:22 | Emergency (ER) | payer OTHER ==
--- OUTSIDE RECORDS SUMMARY | 2022-10-07 17:25 | XMS REPORT | Clinical Summary ---
:1955 Author Organization [facility] MD [facility] Address [facility] [place] [address] Care Team Providers Name Role Phone Unavailable Primary Care Provider Unavailable Allergies No known active allergies Medications Not on file Active Problems Not on file Encounters Date Type Specialty Care Team Description 08/27/2022 Multidisciplinary Visit Gynecology Negin Tejeda , DIRECTOR OF CREATIVE SERVICES after 10/07/2021 Social History Tobacco Use Types Packs/Day Years Used Date Smoking Tobacco: Never Assessed Sex Assigned at Date Recorded Not on file Last Filed Vital Signs Not on file Plan of Treatment Health Maintenance Due Date Last Done Comments COVID-19 Vaccination (#1) 05/31/1956 Results Not on fileafter 10/07/2021
--- OUTSIDE RECORDS SUMMARY | 2022-10-07 17:28 | XMS REPORT | Continuity of Care Document ---
:1955 Author Organization [facility] t Address [address] [place] [address] [place] [id number] Care Team Providers Name Role Phone CARA QUIJANO Primary Care Physician Unavailable SYSTEM, PROVIDER NOT IN Attending Clinician Unavailable INGRIS TAVAREZ Attending Clinician Unavailable INGRIS TAVAREZ Attending Clinician Unavailable GUS NICHOLS Attending Clinician Unavailable MYRTLE VILLALOBOS Attending Clinician Unavailable MYRTLE VILLALOBOS Attending Clinician Unavailable DEVAN STOKES Attending Clinician Unavailable Doctor Unassigned, [place] Attending Clinician Unavailable HEBERT CHAND Attending Clinician Unavailable Gus Nichols MD Attending Clinician Tino Hatch PA-C Attending Clinician Negin Tejeda APRN Attending Clinician TINO HATCH Attending Clinician Unavailable Myrtle Alcantar RN Attending Clinician Unavailable Ramo Sims Attending Clinician Unavailable AL STILES Attending Clinician Unavailable Al Stiles MD Attending Clinician Frankie Harman MD Attending Clinician FRANKIE HARMAN Attending Clinician Unavailable [facility] Attending Clinician Unavailable Kirsten Curry RN Attending Clinician Unavailable DANA STUART Attending Clinician Unavailable DANA STUART Attending Clinician Unavailable Jeanne Attending Clinician Unavailable Mau Padilla Attending Clinician [phone] Mau Padilla Attending Clinician Unavailable INGRIS TAVAREZ Admitting Clinician Unavailable GUS NICHOLS Admitting Clinician Unavailable Gus Nichols MD Admitting Clinician TINO HATCH Admitting Clinician Unavailable Jeanne Admitting Clinician Unavailable Mau Padilla Admitting Clinician Unavailable Payers Payer Name Policy Type Policy Number Effective Date Expiration Date S terri HU[employer] CHOICE [id number] 2022 00:00:00 [employer]NA (MEDICARE [id number] 2021 REPLACEMENT/ADVANT 00:00:00 AGE - PPO) [place]: [id number] 2021 [place] 00:00:00 [place] [id number] ADVANTAGE (HMO) 00:00:00 Problems Condition Condition Condition Status Onset Resolution Last Treating Co mments Source Name Details Category Date Date Treatment Clinician Date Malignant Malignant Disease Active Uni vers neoplasm neoplasm 6-05 ity of of of 00:00: [place] endometriu endometriu 00 Me dical m [facility] Endometria Endometria Disease Active 2022- U nivers l cancer l cancer 6- ity of 00:00: [place] [facility] Postmenopa Postmenopa Disease Active U nivers usal usal 5-26 ity of bleeding bleeding 00:00: [place] [facility] Endometria Endometria Disease Active 2022-0 U nivers l mass l mass 5-26 ity of 00:00: [place] [facility] BMI BMI Disease Active 2022- Univers 45.0-49.9, 45.0-49.9, 5-26 it y of adult adult 00:00: [place] [facility] Osteoarthr Osteoarthr Problem Active A zalea itis of itis of 5-31 Orthope right knee Right Knee 00:00: di c joint Joint 00 Sports Medicin e Osteoarthr Osteoarthr Disease Active 2020-02 U nivers itis of itis of 1-11 [place]y of [place] 00 [place] Osteoarthr Osteoarthr Problem Active 2020-02 [place]at albright itis of itis of 1-11 Orthope knee Knee 00:00: dic 00 Sports Medicin e Allergies, Adverse Reactions, Alerts Allergy Allergy Status Severity Reaction(s) Onset Inactive Treating Comm ents Source Name Type Date Date Clinician levoflox DA Active [facility] RASH-UNKNOWN 2020-02 [facility] A acin 2 [place] 00:00: Orthope 00 [facility] LEVOFLOX DRUG Active Rash 2020-02 Univers ACIN INGREDI 2- ity of 00:00: [place] 00 Medical Branch Levoflox Drug Active Rash 2020-02 Univers acin Allergy 2 ity of 00:00: [place] 00 Medical Branch Levaquin Allergy Active Rash 2020-02 Shanna to 206 Orthope substanc 00:00: dic e 00 Sports Medicin e levoflox DA Active [facility] RASH-UNKNOWN 2020-02 HC A acin 1- Clear 00:00: [place] 00 [facility] No Known DA Active U 2000-02 [facility] Contrast 0-16 [place] Allergie 00:00: Orthope s 00 dic Hospita l No Known DA Active U 2000-02 [facility] Drug 0-16 [place] Allergie 00:00: Orthope s 00 dic Hospita [facility] No Known DA Active U 2000-02 [facility] Food 0-16 [place] Allergie 00:00: Orthope s 00 dic Hospita l No Known DA Active U 2000-02 [facility] Other 0-16 [place] Allergie 00:00: Orthope s 00 dic Hospita l NO KNOWN Drug Active Univers ALLERGIE Class ity of S [facility] Social History Social Habit Start Date Stop Date Quantity Comments Source Gender identity Universit y of [facility] Sexual orientation Univer sity of [facility] Alcohol intake 2022-08-11 2022-08-11 Current drinker Unive rsity of 00:00:00 00:00:00 of alcohol [facility] (finding) Branch History of Social 2022-08-10 2022-08-10 Univers ity of function 00:00:00 00:00:00 [facility] Exposure to 2022-07-26 2022-08-05 Not sure University of SARS-CoV-2 (event) 00:00:00 07:08:00 [facility] Tobacco use and 2022-07-072022-07-07 Smokeless Universit y of exposure 00:00:00 00:00:00 tobacco non-user [facility] Alcohol Comment 2022-07-07 2022-07-07 rarely Universit y of 00:00:00 00:00:00 [facility] Sex [birth year] Universit y of 00:00:00 00:00:00 Mirna Castillo [facility] Smoking Status Start Date Stop Date Source Tobacco smoking consumption [facility] Branch Never smoked tobacco [facility] [place] [place] Medications Ordered Filled Start Stop Current Ordering Indication Dosage Frequency Signature Comments Components Source Medication Medication Date Date Medication? Clinician (SIG) Name Name meloxicam Yes 15mg Take 1 Univer s 15 mg 7-17 tablet by ity of tablet 10:01: mouth in [place] the Medical morning. Branch levothyroxi Yes Synthroid U nivers ne 125 mcg 7-17 125 mcg ity of tablet 10:01: tablet TAKE 1 Medical TABLET BY Branch MOUTH EVERY DAY IN THE MORNING mv-mn/folic Yes 1{tbl} Take 1 Un pete ac/calcium/ 7-17 tablet by ity of vit K1 10:01: mouth in [place] (WOMEN'S 50 22 the Medical PLUS morning. [place] MULTIVITAMI N ORAL) meloxicam Yes 15mg Take 1 Univer s 15 mg 7-17 tablet by ity of tablet 10:01: mouth in [place] the Medical morning. Branch levothyroxi Yes Synthroid U nivers ne 125 mcg 7-17 125 mcg ity of tablet 10:01: tablet TAKE 1 Medical TABLET BY Branch MOUTH EVERY DAY IN THE MORNING mv-mn/folic Yes 1{tbl} Take 1 Un pete ac/calcium/ 7-17 tablet by ity of vit K1 10:01: mouth in [place] (WOMEN'S 50 22 the Medical PLUS morning. Branch MULTIVITAMI N ORAL) meloxicam Yes 15mg Take 1 Univer s 15 mg 7-17 tablet by ity of tablet 10:01: mouth in [place] 22 the Medical morning. Branch levothyroxi Yes Synthroid U nivers ne 125 mcg 7-17 125 mcg ity of tablet 10:01: tablet TAKE 1 Medical TABLET BY Branch MOUTH EVERY DAY IN THE MORNING mv-mn/folic 2022-0 Yes 1{tbl} Take 1 Un pete ac/calcium/ 7-17 tablet by ity of vit K1 10:01: mouth in [place] (WOMEN'S 50 22 the Medical PLUS morning. Branch MULTIVITAMI N ORAL) meloxicam 2022-0 Yes 15mg Take 1 Univer s 15 mg 7-17 tablet by ity of tablet 10:01: mouth in [place] 22 the Medical morning. Branch levothyroxi 2022-0 Yes Synthroid U nivers ne 125 mcg 7-17 125 mcg ity of tablet 10:01: tablet TAKE 1 Medical TABLET BY Branch MOUTH EVERY DAY IN THE MORNING mv-mn/folic 2022-0 Yes 1{tbl} Take 1 Un pete ac/calcium/ 7-17 tablet by ity of vit K1 10:01: mouth in [place] (WOMEN'S 50 22 the Medical PLUS morning. Branch MULTIVITAMI N ORAL) meloxicam 2022-0 Yes 15mg Take 1 Univer s 15 mg 7-17 tablet by ity of tablet 10:01: mouth in [place] the Medical morning. Branch levothyroxi 0 Yes Synthroid U nivers ne 125 mcg 7-17 125 mcg ity of tablet 10:01: tablet TAKE 1 Medical TABLET BY Branch MOUTH EVERY DAY IN THE MORNING mv-mn/folic 2022-0 Yes 1{tbl} Take 1 Un pete ac/calcium/ 7-17 tablet by ity of vit K1 10:01: mouth in [place] (WOMEN'S 50 22 the Medical PLUS morning. Branch MULTIVITAMI N ORAL) phenazopyri 2022-0 Yes [id number] 200mg Take 2 Univers dine 100 mg 6-27 tablets by it y of tablet 00:00: mouth in [place] 00 the Medical morning Branch and 2 tablets at noon and 2 tablets in the evening. benzocaine- 2022-0 Yes [id number] Apply to Univers menthol, 6-27 area(s) as ity o f DERMOPLAST, 00:00: needed for [place] 20-0.5 % 00 Pain. Medical topical Branch spray phenazopyri 3-0 Yes [id number] 200mg Take 2 Univers dine 100 mg 6-27 tablets by it y of tablet 00:00: mouth in [place] 00 the Medical morning Branch and 2 tablets at noon and 2 tablets in the evening. benzocaine- 2023-0 Yes [id number] Apply to Univers menthol, 6-27 area(s) as ity o f DERMOPLAST, 00:00: needed for [place] 20-0.5 % 00 Pain. Medical topical Branch spray phenazopyri 2023-0 Yes [id number] 200mg Take 2 Univers dine 100 mg 6-27 tablets by it y of tablet 00:00: mouth in [place] 00 the Medical morning Branch and 2 tablets at noon and 2 tablets in the evening. benzocaine- 2023-0 Yes [id number] Apply to Univers menthol, 6-27 area(s) as ity o f DERMOPLAST, 00:00: needed for [place] 20-0.5 % 00 Pain. Medical topical Branch spray phenazopyri 2023-0 Yes [id number] 200mg Take 2 Univers dine 100 mg 6-27 tablets by it y of tablet 00:00: mouth in [place] 00 the Medical morning Branch and 2 tablets at noon and 2 tablets in the evening. benzocaine- 2023-0 Yes [id number] Apply to Univers menthol, 6-27 area(s) as ity o f DERMOPLAST, 00:00: needed for [place] 20-0.5 % 00 Pain. Medical topical Branch spray phenazopyri 2023-0 Yes [id number] 200mg Take 2 Univers dine 100 mg 6-27 tablets by it y of tablet 00:00: mouth in [place] 00 the Medical morning Branch and 2 tablets at noon and 2 tablets in the evening. benzocaine- 2023-0 Yes [id number] Apply to Univers menthol, 6-27 area(s) as ity o f DERMOPLAST, 00:00: needed for [place] 20-0.5 % 00 Pain. Medical topical Branch spray phenazopyri 2023-0 Yes [id number] 200mg Take 2 Univers dine 100 mg 6-27 tablets by it y of tablet 00:00: mouth in [place] 00 the Medical morning Branch and 2 tablets at noon and 2 tablets in the evening. benzocaine- 2023-0 Yes [id number] Apply to Univers menthol, 6-27 area(s) as ity o f DERMOPLAST, 00:00: needed for [place] 20-0.5 % 00 Pain. Medical topical Branch spray phenazopyri 2023-0 Yes [id number] 200mg Take 2 Univers dine 100 mg 6-27 tablets by it y of tablet 00:00: mouth in [place] 00 the Medical morning Branch and 2 tablets at noon and 2 tablets in the evening. benzocaine- 2023-0 Yes [id number] Apply to Univers menthol, 6-27 area(s) as ity o f DERMOPLAST, 00:00: needed for [place] 20-0.5 % 00 Pain. Medical topical Branch spray phenazopyri 2023-0 Yes [id number] 200mg Take 2 Univers dine 100 mg 6-27 tablets by it y of tablet 00:00: mouth in [place] 00 the Medical morning Branch and 2 tablets at noon and 2 tablets in the evening. benzocaine- 2023-0 Yes [id number] Apply to Univers menthol, 6-27 area(s) as ity o f DERMOPLAST, 00:00: needed for [place] 20-0.5 % 00 Pain. Medical topical Branch spray phenazopyri 2023-0 Yes [id number] 200mg Take 2 Univers dine 100 mg 6-27 tablets by it y of tablet 00:00: mouth in [place] 00 the Medical morning Branch and 2 tablets at noon and 2 tablets in the evening. benzocaine- 2023-0 Yes [id number] Apply to Univers menthol, 6-27 area(s) as ity o f DERMOPLAST, 00:00: needed for [place] 20-0.5 % 00 Pain. Medical topical Branch spray phenazopyri 2023-0 Yes [id number] 200mg Take 2 Univers dine 100 mg 6-27 tablets by it y of tablet 00:00: mouth in [place] 00 the Medical morning Branch and 2 tablets at noon and 2 tablets in the evening. benzocaine- 2023-0 Yes [id number] Apply to Univers menthol, 6-27 area(s) as ity o f DERMOPLAST, 00:00: needed for [place] 20-0.5 % 00 Pain. Medical topical Branch spray HYDROcodone 2022-0 Yes 1{tbl} 1 tablet, Univers -acetaminop 6-26 Oral, PRN, it y of hen (NORCO 23:39: 1 dose, [place] 5) 5-325 mg 18 Starting Medi power tablet 1 on Mon Branch tablet 08/10/22 at 1839, Until Discontinu ed, Routine, Pain (scale 7-10), DSU Recovery ibuprofen Yes 800mg 800 mg, Univ ers (IBU) 08-10 Oral, PRN, ity of tablet 800 23:39: 1 dose, [place] mg 18 Starting Medical on Mon Branch 08/10/22 at 1839, Until Discontinu ed, Routine, Pain (scale 4-6), DSU Recovery acetaminoph Yes 650mg 650 mg, Un pete en 08-10 Oral, PRN, ity of (TYLENOL) 23:39: 1 dose, [place] tablet 650 18 Starting Medic al mg on Wed Branch 08/10/22 at 1839, Until Discontinu ed, Routine, Pain (scale 1-3), DSU Recovery HYDROcodone 2022- No 1{tbl} 1 tablet, Univers -acetaminop 08-10 Oral, PRN, i ty of hen (NORCO 23:39: 05:36 1 dose, [place] 5) 5-325 mg 18 :26 Starting Medi power tablet 1 on Wed Branch tablet 08/10/22 at 1839, Until Wed08/11/22 at 0036, Routine, Pain (scale 7-10), DSU Recovery ibuprofen 2022- No 800mg 800 mg, Uni vers (IBU) 08-10 Oral, PRN, ity of tablet 800 23:39: 05:36 1 dose, [place] mg 18 :26 Starting Medical on Wed Branch 08/10/22 at 1839, Until Wed08/11/22 at 0036, Routine, Pain (scale 4-6), DSU Recovery acetaminoph 2022- No 650mg 650 mg, U nivers en 08-10 Oral, PRN, ity of (TYLENOL) 23:39: 05:36 1 dose, [place] tablet 650 18 :26 Starting Medic al mg on Mon Branch 08/10/22 at 1839, Until Wed08/11/22 at 0036, Routine, Pain (scale 1-3), DSU Recovery lactated Yes 1000mL at 75 Univer s ringers IV 6 mL/hr, ity of infusion 23:15: 1,000 mL, [place] 1,000 mL 00 IV Medical Infusion, Branch CONTINUOUS , Starting on Wed08/10/22 at 1815, Until Discontinu ed, Routine, PACU lactated 2022-0 202- No 1000mL at 75 Unive rs ringers IV 08-10 06-27 mL/hr, ity of infusion 23:15: 05:36 1,000 mL, [place] 1,000 mL 00 :26 IV Medical Infusion, Branch CONTINUOUS , Starting on Wed08/10/22 at 1815, Until Wed08/11/22 at 0036, Routine, PACU HYDROmorpho 2022-0 Yes .2mg 0.2 mg, Uni vers ne 08-10 Slow IV ity of (DILAUDID) 23:14: Push, [place] injection 21 Q5MIN PRN, Medi power 0.2 mg 5 doses, Branch Starting on Wed08/10/22 at 1814, Until Discontinu ed, Routine, Pain (scale 7-10), PACU
Us e approved by (Faculty): PAIN SERVICE FENTanyl PF Yes 25ug 25 mcg, Uni vers (SUBLIMAZE 08-10 Slow IV ity of (PF)) 23:14: Push, [place] injection 21 Q5MIN PRN, Medi power 25 mcg 4 doses, Branch Starting on Wed08/10/22 at 1814, Until Discontinu ed, Routine, Pain (scale 4-6), PACU ondansetron 2022-0 Yes 4mg 4 mg, Slow Univers (ZOFRAN 08-10 IV Push, ity of (PF)) 23:14: PRN, 1 [place] injection 4 21 dose, Medical mg Starting Branch on Wed08/10/22 at 1814, Until Discontinu ed, Routine, Nausea and Vomiting (N/V), PACU HYDROmorpho 2022-0 2022- No .2mg 0.2 mg, Un pete ne 08-10 Slow IV ity of (DILAUDID) 23:14: 05:36 Push, [place] injection 21 :26 Q5MIN PRN, Medi power 0.2 mg 5 doses, Branch Starting on Wed08/10/22 at 1814, Until Wed08/11/22 at 0036, Routine, Pain (scale 7-10), PACU
Us e approved by (Faculty): PAIN SERVICE FENTanyl PF No 25ug 25 mcg, Un pete (SUBLIMAZE 08-10 Slow IV ity o f (PF)) 23:14: 05:36 Push, [place] injection 21 :26 Q5MIN PRN, Medi power 25 mcg 4 doses, Branch Starting on Wed08/10/22 at 1814, Until Wed08/11/22 at 0036, Routine, Pain (scale 4-6), PACU ondansetron 2022- No 4mg 4 mg, Slow Univers (ZOFRAN 08-10 IV Push, ity of (PF)) 23:14: 05:36 PRN, 1 [place] injection 4 21 :26 dose, Medical mg Starting Branch on Wed08/10/22 at 1814, Until Wed08/11/22 at 0036, Routine, Nausea and Vomiting (N/V), PACU HYDROcodone 2022- No 1{tbl} 1 tablet, Univers -acetaminop 08-10 Oral, PRN, i ty of hen (NORCO) 23:11: 00:37 1 dose, [place] 10-325 mg 45 :00 Starting Medica l tablet 1 on Wed Branch tablet 08/10/22 at 1811, Until Discontinu ed, Routine, Pain (scale 7-10), DSU Recovery HYDROcodone 2022- No 1{tbl} 1 tablet, Univers -acetaminop 08-10 Oral, PRN, i ty of hen (NORCO) 23:11: 00:37 1 dose, [place] 10-325 mg 45 :00 Starting Medica l tablet 1 on Wed Branch tablet 08/10/22 at 1811, Until Discontinu ed, Routine, Pain (scale 7-10), DSU Recovery HYDROcodone Yes 1{tbl} 1 tablet, Univers -acetaminop 08-10 Oral, PRN, it y of hen (NORCO 23:11: 1 dose, [place] 5) 5-325 mg 43 Starting Medi power tablet 1 on Wed Branch tablet 08/10/22 at 1811, Until Discontinu ed, Routine, Pain (scale 4-6), DSU Recovery HYDROcodone 0 2022- No 1{tbl} 1 tablet, Univers -acetaminop 08-10 Oral, PRN, i ty of hen (NORCO 23:11: 05:36 1 dose, [place] 5) 5-325 mg 43 :26 Starting Medi power tablet 1 on Wed Branch tablet 08/10/22 at 1811, Until Wed08/11/22 at 0036, Routine, Pain (scale 4-6), DSU Recovery ibuprofen 0 Yes 800mg 800 mg, Univ ers (IBU) 08-10 Oral, PRN, ity of tablet 800 23:11: 1 dose, [place] mg 39 Starting Medical on Wed Branch 08/10/22 at 1811, Until Discontinu ed, Routine, Pain (scale 1-3), DSU Recovery ibuprofen 2022-0 2022- No 800mg 800 mg, Uni vers (IBU) 08-10 Oral, PRN, ity of tablet 800 23:11: 05:36 1 dose, [place] mg 39 :26 Starting Medical on Wed Branch 08/10/22 at 1811, Until Wed08/11/22 at 0036, Routine, Pain (scale 1-3), DSU Recovery meloxicam 0 Yes 15mg Take 1 Univer s 15 mg 6-26 tablet by ity of tablet 22:36: mouth in [place] the Medical morning. [place] levothyroxi Yes Synthroid U nivers ne 125 mcg 6-26 125 mcg ity of tablet 22:36: tablet TAKE 1 Medical TABLET BY Branch MOUTH EVERY DAY IN THE MORNING mv-mn/folic 0 Yes 1{tbl} Take 1 Un pete ac/calcium/ 6-26 tablet by ity of vit K1 22:36: mouth in [place] (WOMEN'S 50 23 the Medical PLUS morning. [place] MULTIVITAMI N ORAL) meloxicam Yes 15mg Take 1 Univer s 15 mg 6-26 tablet by ity of tablet 22:36: mouth in [place] 23 the Medical morning. [place] levothyroxi Yes Synthroid U nivers ne 125 mcg 6-26 125 mcg ity of tablet 22:36: tablet TAKE 1 Medical TABLET BY Branch MOUTH EVERY DAY IN THE MORNING mv-mn/folic 0 Yes 1{tbl} Take 1 Un pete ac/calcium/ 6-26 tablet by ity of vit K1 22:36: mouth in [place] (WOMEN'S 50 23 the Medical PLUS morning. Branch MULTIVITAMI N ORAL) meloxicam 2022-0 Yes 15mg Take 1 Univer s 15 mg 6-26 tablet by ity of tablet 22:36: mouth in [place] 23 the Medical morning. Branch levothyroxi 0 Yes Synthroid U nivers ne 125 mcg 6-26 125 mcg ity of tablet 22:36: tablet TAKE 1 Medical TABLET BY Branch MOUTH EVERY DAY IN THE MORNING mv-mn/folic 0 Yes 1{tbl} Take 1 Un pete ac/calcium/ 6-26 tablet by ity of vit K1 22:36: mouth in [place] (WOMEN'S 50 23 the Medical PLUS morning. Branch MULTIVITAMI N ORAL) meloxicam 2022-0 Yes 15mg Take 1 Univer s 15 mg 6-26 tablet by ity of tablet 22:36: mouth in [place] 23 the Medical morning. Branch levothyroxi 0 Yes Synthroid U nivers ne 125 mcg 6-26 125 mcg ity of tablet 22:36: tablet TAKE 1 Medical TABLET BY Branch MOUTH EVERY DAY IN THE MORNING mv-mn/folic 0 Yes 1{tbl} Take 1 Un pete ac/calcium/ 6-26 tablet by ity of vit K1 22:36: mouth in [place] (WOMEN'S 50 23 the Medical PLUS morning. Branch MULTIVITAMI N ORAL) meloxicam 2022-0 Yes 15mg Take 1 Univer s 15 mg 6-26 tablet by ity of tablet 22:36: mouth in [place] 23 the Medical morning. Branch levothyroxi 0 Yes Synthroid U nivers ne 125 mcg 6-26 125 mcg ity of tablet 22:36: tablet TAKE 1 Medical TABLET BY Branch MOUTH EVERY DAY IN THE MORNING mv-mn/folic 0 Yes 1{tbl} Take 1 Un pete ac/calcium/ 6-26 tablet by ity of vit K1 22:36: mouth in [place] (WOMEN'S 50 23 the Medical PLUS morning. Branch MULTIVITAMI N ORAL) meloxicam 2022-0 Yes 15mg Take 1 Univer s 15 mg 6-26 tablet by ity of tablet 22:36: mouth in [place] 23 the Medical morning. Branch levothyroxi Yes Synthroid U nivers ne 125 mcg 6-26 125 mcg ity of tablet 22:36: tablet TAKE 1 Medical TABLET BY Branch MOUTH EVERY DAY IN THE MORNING mv-mn/folic Yes 1{tbl} Take 1 Un pete ac/calcium/ 6-26 tablet by ity of vit K1 22:36: mouth in [place] (WOMEN'S 50 23 the Medical PLUS morning. Branch MULTIVITAMI N ORAL) meloxicam Yes 15mg Take 1 Univer s 15 mg 6-26 tablet by ity of tablet 22:36: mouth in [place] 23 the Medical morning. Branch levothyroxi Yes Synthroid U nivers ne 125 mcg 6-26 125 mcg ity of tablet 22:36: tablet TAKE 1 Medical TABLET BY Branch MOUTH EVERY DAY IN THE MORNING mv-mn/folic Yes 1{tbl} Take 1 Un pete ac/calcium/ 6-26 tablet by ity of vit K1 22:36: mouth in [place] (WOMEN'S 50 23 the Medical PLUS morning. Branch MULTIVITAMI N ORAL) bupivacaine 2022- No PRN, Unive rs (preserv 08-10 Starting ity of free) 22:32: 23:14 on Wed (SENSORCAIN 00 :16 08/10/22 at [place] dicpr E MPF) 0.25 1732, Branch % (2.5 Until Mon mg/mL) 08/10/22 at injection 181, Routine, Intra-op indocyanine 2022- No PRN, Unive rs green 08-10 Starting ity of (CARDIO-GRE 21:54: 23:14 on Wed [place] as EN) 00 :16 08/10/22 at Medical injection 1654, Branch Until 08/10/22 at 1814, Routine, Intra-op levothyroxi 2022- No Take by Un pete ne sodium 08-10 mouth. ity of (SYNTHROID 18:07: 00:00 [place] ORAL) 54 :00 Medical Branch levothyroxi 2022- No Take by Un pete ne sodium 6-26 06-26 mouth. ity of (SYNTHROID 18:07: 00:00 [place] ORAL) 54 :00 Medical Branch levothyroxi 0 Yes Take by Uni vers ne sodium 6-26 mouth. ity of (SYNTHROID 09:33: [place] ORAL) 16 Medical Branch meloxicam 2022-0 Yes 15mg Take 1 Univer s 15 mg 6-26 tablet by ity of tablet 09:33: mouth in [place] 16 the Medical morning. Branch levothyroxi 2022-0 Yes Synthroid U nivers ne 125 mcg 6-26 125 mcg ity of tablet 09:33: tablet [place] 16 TAKE 1 Medical TABLET BY Branch MOUTH EVERY DAY IN THE MORNING mv-mn/folic 2022-0 Yes 1{tbl} Take 1 Un pete ac/calcium/ 6-26 tablet by ity of vit K1 09:33: mouth in [place] (WOMEN'S 50 16 the Medical PLUS morning. Branch MULTIVITAMI N ORAL) ibuprofen 2022-0 Yes [id number] 600mg Take 1 Univers 600 mg 6-26 tablet by ity of tablet 00:00: mouth [place] 00 every 6 Medical (six) Branch hours. proCHLORper 2022-0 Yes [id number] 10mg Take 1 Univers azine 10 mg 6-26 tablet by ity of tablet 00:00: mouth [place] 00 every 6 Medical (six) Branch hours as needed for Nausea and Vomiting (N/V). sennosides- 2022-0 Yes [id number] 1{tbl} Take 1 Univers docusate 6-26 tablet by ity of sodium 00:00: mouth in [place] 8.6-50 mg 00 the Medical per tablet morning. Branc h ibuprofen 2022-0 Yes [id number] 600mg Take 1 Univers 600 mg 6-26 tablet by ity of tablet 00:00: mouth [place] 00 every 6 Medical (six) Branch hours. proCHLORper 2022-0 Yes [id number] 10mg Take 1 Univers azine 10 mg 6-26 tablet by ity of tablet 00:00: mouth [place] 00 every 6 Medical (six) Branch hours as needed for Nausea and Vomiting (N/V). sennosides- 2022-0 Yes [id number] 1{tbl} Take 1 Univers docusate 6-26 tablet by ity of sodium 00:00: mouth in [place] 8.6-50 mg 00 the Medical per tablet morning. Branc h ibuprofen 3-0 Yes [id number] 600mg Take 1 Univers 600 mg 6-26 tablet by ity of tablet 00:00: mouth [place] 00 every 6 Medical (six) Branch hours. proCHLORper 2023-0 Yes [id number] 10mg Take 1 Univers azine 10 mg 6-26 tablet by ity of tablet 00:00: mouth [place] 00 every 6 Medical (six) Branch hours as needed for Nausea and Vomiting (N/V). sennosides- 2023-0 Yes [id number] 1{tbl} Take 1 Univers docusate 6-26 tablet by ity of sodium 00:00: mouth in [place] 8.6-50 mg 00 the Medical per tablet morning. Branc h ibuprofen 3-0 Yes [id number] 600mg Take 1 Univers 600 mg 6-26 tablet by ity of tablet 00:00: mouth [place] 00 every 6 Medical (six) Branch hours. proCHLORper 2023-0 Yes [id number] 10mg Take 1 Univers azine 10 mg 6-26 tablet by ity of tablet 00:00: mouth [place] 00 every 6 Medical (six) Branch hours as needed for Nausea and Vomiting (N/V). sennosides- 3-0 Yes [id number] 1{tbl} Take 1 Univers docusate 6-26 tablet by ity of sodium 00:00: mouth in [place] 8.6-50 mg 00 the Medical per tablet morning. Branc h ibuprofen 3-0 Yes [id number] 600mg Take 1 Univers 600 mg 6-26 tablet by ity of tablet 00:00: mouth [place] 00 every 6 Medical (six) Branch hours. proCHLORper 2023-0 Yes [id number] 10mg Take 1 Univers azine 10 mg 6-26 tablet by ity of tablet 00:00: mouth [place] 00 every 6 Medical (six) Branch hours as needed for Nausea and Vomiting (N/V). sennosides- 2023-0 Yes [id number] 1{tbl} Take 1 Univers docusate 6-26 tablet by ity of sodium 00:00: mouth in [place] 8.6-50 mg 00 the Medical per tablet morning. Branc h ibuprofen 3-0 Yes [id number] 600mg Take 1 Univers 600 mg 6-26 tablet by ity of tablet 00:00: mouth [place] 00 every 6 Medical (six) Branch hours. proCHLORper 2023-0 Yes [id number] 10mg Take 1 Univers azine 10 mg 6-26 tablet by ity of tablet 00:00: mouth [place] 00 every 6 Medical (six) Branch hours as needed for Nausea and Vomiting (N/V). sennosides- 2023-0 Yes [id number] 1{tbl} Take 1 [facility] docusate 6-26 tablet by ity of sodium 00:00: mouth in [place] 8.6-50 mg 00 the Medical per tablet morning. Branc h ibuprofen 3-0 Yes [id number] 600mg Take 1 [facility] 600 mg 6-26 tablet by ity of tablet 00:00: mouth [place] 00 every 6 Medical (six) Branch hours. proCHLORper 2023-0 Yes [id number] 10mg Take 1 [facility] azine 10 mg 6-26 tablet by ity of tablet 00:00: mouth [place] 00 every 6 Medical (six) Branch hours as needed for Nausea and Vomiting (N/V). sennosides- 2023-0 Yes [id number] 1{tbl} Take 1 [facility] docusate 6-26 tablet by ity of sodium 00:00: mouth in [place] 8.6-50 mg 00 the Medical per tablet morning. Branc h ibuprofen 3-0 Yes [id number] 600mg Take 1 [facility] 600 mg 6-26 tablet by ity of tablet 00:00: mouth [place] 00 every 6 Medical (six) Branch hours. proCHLORper 2023-0 Yes [id number] 10mg Take 1 [facility] azine 10 mg 6-26 tablet by ity of tablet 00:00: mouth [place] 00 every 6 Medical (six) Branch hours as needed for Nausea and Vomiting (N/V). sennosides- 2023-0 Yes [id number] 1{tbl} Take 1 [facility] docusate 6-26 tablet by ity of sodium 00:00: mouth in [place] 8.6-50 mg 00 the Medical per tablet morning. Branc h ibuprofen 2023-0 Yes [id number] 600mg Take 1 [facility] 600 mg 6-26 tablet by ity of tablet 00:00: mouth [place] 00 every 6 Medical (six) Branch hours. proCHLORper 2023-0 Yes [id number] 10mg Take 1 [facility] azine 10 mg 6-26 tablet by ity of tablet 00:00: mouth [place] 00 every 6 Medical (six) Branch hours as needed for Nausea and Vomiting (N/V). sennosides- 2023-0 Yes [id number] 1{tbl} Take 1 [facility] docusate 6-26 tablet by ity of sodium 00:00: mouth in [place] 8.6-50 mg 00 the Medical per tablet morning. Branc h ibuprofen 2023-0 Yes [id number] 600mg Take 1 [facility] 600 mg 6-26 tablet by ity of tablet 00:00: mouth [place] 00 every 6 Medical (six) Branch hours. proCHLORper 2023-0 Yes [id number] 10mg Take 1 [facility] azine 10 mg 6-26 tablet by ity of tablet 00:00: mouth [place] 00 every 6 Medical (six) Branch hours as needed for Nausea and Vomiting (N/V). sennosides- 2023-0 Yes [id number] 1{tbl} Take 1 [facility] docusate 6-26 tablet by ity of sodium 00:00: mouth in [place] 8.6-50 mg 00 the Medical per tablet morning. Branc h ibuprofen 3-0 Yes [id number] 600mg Take 1 [facility] 600 mg 6-26 tablet by ity of tablet 00:00: mouth [place] 00 every 6 Medical (six) Branch hours. proCHLORper 2023-0 Yes [id number] 10mg Take 1 [facility] azine 10 mg 6-26 tablet by ity of tablet 00:00: mouth [place] 00 every 6 Medical (six) Branch hours as needed for Nausea and Vomiting (N/V). sennosides- 2023-0 Yes [id number] 1{tbl} Take 1 [facility] docusate 6-26 tablet by ity of sodium 00:00: mouth in [place] 8.6-50 mg 00 the Medical per tablet morning. Branc h ibuprofen 2023-0 Yes [id number] 600mg Take 1 [facility] 600 mg 6-26 tablet by ity of tablet 00:00: mouth [place] 00 every 6 Medical (six) Branch hours. proCHLORper 2023-0 Yes [id number] 10mg Take 1 [facility] azine 10 mg 6-26 tablet by ity of tablet 00:00: mouth [place] 00 every 6 Medical (six) Branch hours as needed for Nausea and Vomiting (N/V). sennosides- Yes [id number] 1{tbl} Take 1 [facility] docusate 6-26 tablet by ity of sodium 00:00: mouth in [place] 8.6-50 mg 00 the Medical per tablet morning. Branc h HYDROcodone 2022- Yes [id number] 1{tbl} Take 1 U nivers -acetaminop 6-26 07-04 tablet by it y of hen 5-325 00:00: 04:59 mouth [place] mg tablet 00 :00 every 6 Medical (six) Branch hours as needed for Pain (scale 4-6) or Pain (scale 7-10) for up to 7 days. Indication s: acute pain HYDROcodone 2022- Yes [id number] 1{tbl} Take 1 U nivers -acetaminop 6-26 07-04 tablet by it y of hen 5-325 00:00: 04:59 mouth [place] mg tablet 00 :00 every 6 Medical (six) Branch hours as needed for Pain (scale 4-6) or Pain (scale 7-10) for up to 7 days. Indication s: acute pain HYDROcodone 2022- Yes [id number] 1{tbl} Take 1 U nivers -acetaminop 6-26 07-04 tablet by it y of hen 5-325 00:00: 04:59 mouth [place] mg tablet 00 :00 every 6 Medical (six) Branch hours as needed for Pain (scale 4-6) or Pain (scale 7-10) for up to 7 days. Indication s: acute pain HYDROcodone 2022- Yes [id number] 1{tbl} Take 1 U nivers -acetaminop 6-26 07-04 tablet by it y of hen 5-325 00:00: 04:59 mouth [place] mg tablet 00 :00 every 6 Medical (six) Branch hours as needed for Pain (scale 4-6) or Pain (scale 7-10) for up to 7 days. Indication s: acute pain levothyroxi 0 Yes Take by Uni vers ne sodium 6-21 mouth. ity of (SYNTHROID 14:21: [place] ORAL) 42 Medical Branch levothyroxi 2022-0 Yes Take by [facility] vers ne sodium 6-21 mouth. ity of (SYNTHROID 14:21: [place] ORAL) 42 Medical Branch levothyroxi Yes Take by [facility] vers ne sodium 6-21 mouth. ity of (SYNTHROID 14:21: [place] ORAL) 42 Medical Branch levothyroxi Yes Take by [facility] vers ne sodium 6-21 mouth. ity of (SYNTHROID 14:21: [place] ORAL) 42 Medical Branch levothyroxi Yes Take by [facility] vers ne sodium 6-21 mouth. ity of (SYNTHROID 14:21: [place] ORAL) 42 Medical Branch NaCl 0.9% Yes [id number] 250mL at 20 U nivers (NS) IV 6-16 mL/hr, IV it[facility] of infusion 15:45: [place]fusion, [place] 250 [place] 00 CONTINUOUS Medical , Starting Branch on Wed07/31/22 at 1045, Until Discontinu ed, Routine&lt ;br>To keep vein open
perflutren 2022- No [id number] 2mL 2 mL, IV [facility] lipid 07-31-16 Push, ity of microsphere 15:30: 14:40 ONCE, 1 [place] 00 :00 dose, On Medical (DEFINITY) Fri Branch injection 2 07/31/22 at mL 1030, Routine DOBUTamine Yes [id number] 5ug/kg/ 5 [facility] (DOBUTREX) 6-16 min mcg/kg/min ity of 250 mg/250 14:34: ?136.1 kg [place] mL RTU 37 (40.83 Medical infusion mL/hr), IV Branc h Infusion, TITRATE, MAP Goal > or = 65 mmHg, Titrate per admin instructio ns, Starting on Wed07/31/22 at 0934
No te and document the precise time that this is 3. ac complished . Begin the count with the EKG system's DSE applicatio n program. This is time zero.&nbsp ;? At 2 minutes and 30 seconds after beginning the initial dosing, acquire parasterna l long axis and parasterna l short axis view at papillary level, apical 4 chamber, 2 chamber and apical long axis view, and BP ? At the 3 minute interval, simultaneo usly obtain a 12 lead EKG, heart rate and 02 saturation and increase the Dobutamine infusion to 10 mcg/kg/min . At the 5 minutes and 30 second interval, acquire parasterna l long axis and parasterna l short&nbsp ;axis view at papillary level, apical 4 chamber, 2 chamber and apical long axis view and measure BP. ? At the 6 minute interval, simultaneo usly obtain a 12 lead EKG, heart rate and 02saturati on an d increase the Dobutamine infusion to 20 mcg/kg/min .&nbsp ;? At the 8 minutes and 30 second interval, acquire parasterna l long axis and parasterna l short&nbsp ;axis view at papillary level, apical 4 chamber, 2 chamber and apical long axis view and measure BP. ? At the 9 minute interval, simultaneo usly obtain a 12 lead EKG, heart rate and 02 saturation and increase the Dobutamine infusion to 30 mcg/kg/min . (see Adjunctive Therapy)&a mp;nbsp;? At the 11 minutes and 30 second interval, acquire parasterna l long axis and parasterna l short&nbsp ;axis view at papillary level, apical 4 chamber, 2 chamber and apical long axis view and&nb sp;measure BP. ? At the 12 minute interval, simultaneo usly obtain a 12 lead EKG, heart rate and 02 saturation and increase the Dobutamine infusion to 40 mcg/kg/min . (see Adjunctive Therapy&nb sp;? At the 14 minutes and 30 second interval, acquire parasterna l long axis and parasterna l short&nbsp ;axis view at papillary level, apical 4 chamber, 2 chamber and apical long axis view and m easure BP. ? At the 15 minute interval, simultaneo usly obtain a 12 lead EKG, heart rate and 02 saturation and terminate the Dobutamine infusion. (see Adjunctive Therapy)<b r> iopamidol 3- No [id number] 85mL 85 mL, [facility] (ISOVUE 07-23 06-08 Intravenou ity o f 370-500 mL) 21:45: 20:50 s, ONCE, 1 [place] injection 00 :00 dose, On Medica l 85 mL [place] 07/23/22 Branch at 1645, Routine meloxicam 2023-0 Yes 15mg Take 1 [facility] s 15 mg 6-05 tablet by ity of tablet 11:04: mouth in [place] [address] the Medical morning. Branch meloxicam 2023-0 Yes 15mg Take 1 [facility] s 15 mg 6-05 tablet by ity of tablet 11:04: mouth in [place] [address] the Medical morning. Branch meloxicam 2023-0 Yes 15mg Take 1 [facility] s 15 mg 6-05 tablet by ity of tablet 11:04: mouth in [place] [address] the Medical morning. Branch meloxicam 2023-0 Yes 15mg Take 1 [facility] s 15 mg 6-05 tablet by ity of tablet 11:04: mouth in [place] [address] the Medical morning. Branch meloxicam 2023-0 Yes 15mg Take 1 [facility] s 15 mg 6-05 tablet by ity of tablet 11:04: mouth in [place] [address] the Medical morning. Branch meloxicam 2023-0 Yes 15mg Take 1 [facility] s 15 mg 6-05 tablet by ity of tablet 11:04: mouth in [place] [address] the Medical morning. Branch meloxicam 2023-0 Yes 15mg Take 1 [facility] s 15 mg 6-05 tablet by ity of tablet 11:04: mouth in [place] [address] the Medical morning. Branch meloxicam 2023-0 Yes 15mg Take 1 [facility] s 15 mg 6-05 tablet by ity of tablet 11:04: mouth in [place] [address] the Medical morning. Branch meloxicam 2023-0 Yes 15mg Take 1 [facility] s 15 mg 6-05 tablet by ity of tablet 11:04: mouth in [place] [address] the Medical morning. Branch meloxicam 2023-0 Yes 15mg Take 1 [facility] s 15 mg 6-05 tablet by ity of tablet 11:04: mouth in [place] [address] the Medical morning. Branch meloxicam 2023-0 Yes 15mg Take 1 [facility] s 15 mg 6-05 tablet by ity of tablet 11:04: mouth in [place] [address] the Medical morning. Branch meloxicam 2023-0 Yes 15mg Take 1 [facility] s 15 mg 6-05 tablet by ity of tablet 11:04: mouth in [place] [address] the Medical morning. Branch meloxicam 2023-0 Yes 15mg Take 1 [facility] s 15 mg 6-05 tablet by ity of tablet 11:04: mouth in [place] [address] the Medical morning. Branch meloxicam 2023-0 Yes 15mg Take 1 [facility] s 15 mg 6-05 tablet by ity of tablet 11:04: mouth in [place] [address] the Medical morning. Branch meloxicam 2023-0 Yes 15mg Take 1 [facility] s 15 mg 6-05 tablet by ity of tablet 11:04: mouth in [place] [address] the Medical morning. Branch meloxicam 2023-0 Yes 15mg Take 1 [facility] s 15 mg 6-05 tablet by ity of tablet 11:04: mouth in [place] [address] the Medical morning. Branch meloxicam 2023-0 Yes 15mg Take 1 [facility] s 15 mg 6-05 tablet by ity of tablet 11:04: mouth in [place] [address] the Medical morning. [place] meloxicam 2023-0 Yes 15mg Take 1 [facility] s 15 mg 6-05 tablet by ity of tablet 11:04: mouth in [place] [address] the Medical morning. [place] meloxicam 2023-0 Yes 15mg Take 1 [facility] s 15 mg 6-05 tablet by ity of tablet 11:04: mouth in [place] [address] the Medical morning. [place] meloxicam 2023-0 Yes 15mg Take 1 [facility] s 15 mg 6-05 tablet by ity of tablet 11:04: mouth in [place] [address] the Medical morning. [place] levothyroxi 2022-0 Yes Synthroid U nivers ne 125 mcg 6-05 125 mcg ity of tablet 10:11: tablet TAKE 1 Medical TABLET BY Branch MOUTH EVERY DAY IN THE MORNING mv-mn/folic 2022-0 Yes 1{tbl} Take 1 Un pete ac/calcium/ 6-05 tablet by ity of vit K1 10:11: mouth in [place] (WOMEN'S 50 46 the Medical PLUS morning. Branch MULTIVITAMI N ORAL) levothyroxi 2022-0 Yes Synthroid U nivers ne 125 mcg 6-05 125 mcg ity of tablet 10:11: tablet 46 TAKE 1 Medical TABLET BY Branch MOUTH EVERY DAY IN THE MORNING mv-mn/folic 3-0 Yes 1{tbl} Take 1 Un pete ac/calcium/ 6-05 tablet by ity of vit K1 10:11: mouth in [place] (WOMEN'S 50 46 the Medical PLUS morning. Branch MULTIVITAMI N ORAL) levothyroxi Yes Synthroid U nivers ne 125 mcg 6-05 125 mcg ity of tablet 10:11: tablet 46 TAKE 1 Medical TABLET BY Branch MOUTH EVERY DAY IN THE MORNING mv-mn/folic 0 Yes 1{tbl} Take 1 Un [place] ac/calcium/ 6-05 tablet by ity of vit K1 10:11: mouth in [place] (WOMEN'S 50 46 the Medical PLUS morning. Branch MULTIVITAMI N ORAL) levothyroxi Yes Synthroid U nivers ne 125 mcg 6-05 125 mcg ity of tablet 10:11: tablet 46 TAKE 1 Medical TABLET BY Branch MOUTH EVERY DAY IN THE MORNING mv-mn/folic 0 Yes 1{tbl} Take 1 Un [place]e ac/calcium/ 6-05 tablet by ity of vit K1 10:11: mouth in [place] (WOMEN'S 50 46 the Medical PLUS morning. [place] MULTIVITAMI N ORAL) levothyroxi Yes Synthroid U nivers ne 125 mcg 6-05 125 mcg ity of tablet 10:11: tablet 46 TAKE 1 Medical TABLET BY Branch MOUTH EVERY DAY IN THE MORNING mv-mn/folic 0 Yes 1{tbl} Take 1 Un [place]e ac/calcium/ 6-05 tablet by ity of vit K1 10:11: mouth in [place] (WOMEN'S 50 46 the Medical PLUS morning. [place] MULTIVITAMI N ORAL) levothyroxi Yes Synthroid U nivers ne 125 mcg 6-05 125 mcg ity of tablet 10:11: tablet 46 TAKE 1 Medical TABLET BY Branch MOUTH EVERY DAY IN THE MORNING mv-mn/folic 0 Yes 1{tbl} Take 1 [facility] [place] ac/calcium/ 6-05 tablet by ity of vit K1 10:11: mouth in [place] (WOMEN'S 50 46 the Medical PLUS morning. Branch MULTIVITAMI N ORAL) levothyroxi Yes Synthroid U nivers ne 125 mcg 6-05 125 mcg ity of tablet 10:11: tablet 46 TAKE 1 Medical TABLET BY Branch MOUTH EVERY DAY IN THE MORNING mv-mn/folic 0 Yes 1{tbl} Take 1 Un [place] ac/calcium/ 6-05 tablet by ity of vit K1 10:11: mouth in [place] (WOMEN'S 50 46 the Medical PLUS morning. Branch MULTIVITAMI N ORAL) levothyroxi 0 Yes Synthroid U nivers ne 125 mcg 6-05 125 mcg ity of tablet 10:11: tablet 46 TAKE 1 Medical TABLET BY Branch MOUTH EVERY DAY IN THE MORNING mv-mn/folic 2022-0 Yes 1{tbl} Take 1 [facility] [place] ac/calcium/ 6-05 tablet by ity of vit K1 10:11: mouth in [place] (WOMEN'S 50 46 the Medical PLUS morning. Branch MULTIVITAMI N ORAL) levothyroxi 0 Yes Synthroid U nivers ne 125 mcg 6-05 125 mcg ity of tablet 10:11: tablet 46 TAKE 1 Medical TABLET BY Branch MOUTH EVERY DAY IN THE MORNING mv-mn/folic 2022-0 Yes 1{tbl} Take 1 [facility] [place] ac/calcium/ 6-05 tablet by ity of vit K1 10:11: mouth in [place] (WOMEN'S 50 46 the Medical PLUS morning. Branch MULTIVITAMI N ORAL) levothyroxi 0 Yes Synthroid U nivers ne 125 mcg 6-05 125 mcg ity of tablet 10:11: tablet 46 TAKE 1 Medical TABLET BY Branch MOUTH EVERY DAY IN THE MORNING mv-mn/folic 2022-0 Yes 1{tbl} Take 1 [facility] [place] ac/calcium/ 6-05 tablet by ity of vit K1 10:11: mouth in [place] (WOMEN'S 50 46 the Medical PLUS morning. Branch MULTIVITAMI N ORAL) levothyroxi 0 Yes Synthroid U nivers ne 125 mcg 6-05 125 mcg ity of tablet 10:11: tablet 46 TAKE 1 Medical TABLET BY Branch MOUTH EVERY DAY IN THE MORNING mv-mn/folic 2022-0 Yes 1{tbl} Take 1 [facility] [place] ac/calcium/ 6-05 tablet by ity of vit K1 10:11: mouth in [place] (WOMEN'S 50 46 the Medical PLUS morning. Branch MULTIVITAMI N ORAL) levothyroxi 0 Yes Synthroid U nivers ne 125 mcg 6-05 125 mcg ity of tablet 10:11: tablet 46 TAKE 1 Medical TABLET BY Branch MOUTH EVERY DAY IN THE MORNING mv-mn/folic Yes 1{tbl} Take 1 [place] ac/calcium/ 6-05 tablet by ity of vit K1 10:11: mouth in [place] (WOMEN'S 50 46 the Medical PLUS morning. Branch MULTIVITAMI N ORAL) levothyroxi Yes Synthroid U nivers ne 125 mcg 6-05 125 mcg ity of tablet 10:11: tablet 46 TAKE 1 Medical TABLET BY Branch MOUTH EVERY DAY IN THE MORNING mv-mn/folic 0 Yes 1{tbl} Take 1 [place] ac/calcium/ 6-05 tablet by ity of vit K1 10:11: mouth in [place] (WOMEN'S 50 46 the Medical PLUS morning. Branch MULTIVITAMI N ORAL) levothyroxi Yes Synthroid U nivers ne 125 mcg 6-05 125 mcg ity of tablet 10:11: tablet 46 TAKE 1 Medical TABLET BY Branch MOUTH EVERY DAY IN THE MORNING mv-mn/folic 0 Yes 1{tbl} Take 1 [facility] [place] ac/calcium/ 6-05 tablet by ity of vit K1 10:11: mouth in [place] (WOMEN'S 50 46 the Medical PLUS morning. Branch MULTIVITAMI N ORAL) levothyroxi Yes Synthroid U nivers ne 125 mcg 6-05 125 mcg ity of tablet 10:11: tablet 46 TAKE 1 Medical TABLET BY Branch MOUTH EVERY DAY IN THE MORNING mv-mn/folic 0 Yes 1{tbl} Take 1 [facility] [place] ac/calcium/ 6-05 tablet by ity of vit K1 10:11: mouth in [place] (WOMEN'S 50 46 the Medical PLUS morning. Branch MULTIVITAMI N ORAL) levothyroxi Yes Synthroid U nivers ne 125 mcg 6-05 125 mcg ity of tablet 10:11: tablet 46 TAKE 1 Medical TABLET BY Branch MOUTH EVERY DAY IN THE MORNING mv-mn/folic 0 Yes 1{tbl} Take 1 [place] ac/calcium/ 6-05 tablet by ity of vit K1 10:11: mouth in [place] (WOMEN'S 50 46 the Medical PLUS morning. Branch MULTIVITAMI N ORAL) levothyroxi Yes Synthroid U nivers ne 125 mcg 6-05 125 mcg ity of tablet 10:11: tablet 46 TAKE 1 Medical TABLET BY Branch MOUTH EVERY DAY IN THE MORNING mv-mn/folic Yes 1{tbl} Take 1 [place] ac/calcium/ 6-05 tablet by ity of vit K1 10:11: mouth in [place] (WOMEN'S 50 46 the Medical PLUS morning. [place] MULTIVITAMI N ORAL) levothyroxi Yes Synthroid U nivers ne 125 mcg 6-05 125 mcg ity of tablet 10:11: tablet 46 TAKE 1 Medical TABLET BY Branch MOUTH EVERY DAY IN THE MORNING mv-mn/folic 0 Yes 1{tbl} Take 1 [facility] [place] ac/calcium/ 6-05 tablet by ity of vit K1 10:11: mouth in [place] (WOMEN'S 50 46 the Medical PLUS morning. [place] MULTIVITAMI N ORAL) levothyroxi Yes Synthroid U nivers ne 125 mcg 6-05 125 mcg ity of tablet 10:11: tablet 46 TAKE 1 Medical TABLET BY Branch MOUTH EVERY DAY IN THE MORNING mv-mn/folic 0 Yes 1{tbl} Take 1 [place] ac/calcium/ 6-05 tablet by ity of vit K1 10:11: mouth in [place] (WOMEN'S 50 46 the Medical PLUS morning. [place] MULTIVITAMI N ORAL) levothyroxi Yes Synthroid U nivers ne 125 mcg 6-05 125 mcg ity of tablet 10:11: tablet 46 TAKE 1 Medical TABLET BY Branch MOUTH EVERY DAY IN THE MORNING mv-mn/folic Yes 1{tbl} Take 1 [place] ac/calcium/ 6-05 tablet by ity of vit K1 10:11: mouth in [place] (WOMEN'S 50 46 the Medical PLUS morning. [place] MULTIVITAMI N ORAL) metroNIDAZO 0 2022- Yes [id number] 500mg Take 1 [facility] LE 500 mg 6-05 -13 tablet by ity of tablet 00:00: 04:59 mouth in [place] 00 :00 the Medical morning Branch and 1 tablet in the evening. Do all this for 7 days. Take 1 week prior to scheduled surgery metroNIDAZO 0 2022- Yes [id number] 500mg Take 1 [facility] LE 500 mg 6-05 -13 tablet by ity of tablet 00:00: 04:59 mouth in [place] 00 :00 the Medical morning Branch and 1 tablet in the evening. Do all this for 7 days. Take 1 week prior to scheduled surgery metroNIDAZO 2022- Yes [id number] 500mg Take 1 [facility] LE 500 mg 6-05 06-13 tablet by ity of tablet 00:00: 04:59 mouth in [place] 00 :00 the Medical morning Branch and 1 tablet in the evening. Do all this for 7 days. Take 1 week prior to scheduled surgery metroNIDAZO 2022- Yes [id number] 500mg Take 1 [facility] LE 500 mg 6-05 06-13 tablet by ity of tablet 00:00: 04:59 mouth in [place] 00 :00 the Medical morning Branch and 1 tablet in the evening. Do all this for 7 days. Take 1 week prior to scheduled surgery metroNIDAZO 2022- Yes [id number] 500mg Take 1 [facility] LE 500 mg 6-06 20-13 tablet by ity of tablet 00:00: 04:59 mouth in [place] 00 :00 the [facility] and 1 tablet in the evening. Do all this for 7 days. Take 1 week prior to scheduled surgery metroNIDAZO 2022- Yes [id number] 500mg Take 1 [facility] LE 500 mg 6- 06-13 tablet by ity of tablet 00:00: 04:59 mouth in [place] 00 :00 the [facility] morning [place] and 1 tablet in the evening. Do all this for 7 days. Take 1 week prior to scheduled surgery metroNIDAZO 2022- Yes [id number] 500mg Take 1 [facility] LE 500 mg 6-05 06-13 tablet by ity of tablet 00:00: 04:59 mouth in [place] 00 :00 the [facility] morning [place] and 1 tablet in the evening. Do all this for 7 days. Take 1 week prior to scheduled surgery metroNIDAZO 2022- No [id number] 500mg Take 1 [facility] LE 500 mg 6-05 06-13 tablet by ity of tablet 00:00: 04:59 mouth in [place] 00 :00 the [facility] morning [place] and 1 tablet in the evening. Do all this for 7 days. Take 1 week prior to scheduled surgery metroNIDAZO 2022- No [id number] 500mg Take 1 [facility] LE 500 mg 6-05 06-13 tablet by ity of tablet 00:00: 04:59 mouth in [place] 00 :00 the Medical morning Branch and 1 tablet in the evening. Do all this for 7 days. Take 1 week prior to scheduled surgery metroNIDAZO 0 2022- No [id number] 500mg Take 1 [facility] LE 500 mg 07-20 tablet by ity of tablet 00:00: 04:59 mouth in [place] 00 :00 the Medical morning Branch and 1 tablet in the evening. Do all this for 7 days. Take 1 week prior to scheduled surgery levothyroxi 0 Yes Take by Uni vers ne sodium 5-31 mouth. ity of (SYNTHROID 10:06: [place] ORAL) 33 [facility] meloxicam 0 Yes 15mg Take 1 Univer s 15 mg 5-31 tablet by ity of tablet 10:06: mouth in [place] 33 the Medical morning. Branch levothyroxi 0 Yes Synthroid U nivers ne 125 mcg 5-31 125 mcg ity of tablet 10:06: tablet [place] 33 TAKE 1 Medical TABLET BY Branch MOUTH EVERY DAY IN THE MORNING mv-mn/folic 0 Yes 1{tbl} Take 1 Un pete ac/calcium/ 5-31 tablet by ity of vit K1 10:06: mouth in [place] (WOMEN'S 50 33 the Medical PLUS morning. Branch MULTIVITAMI N ORAL) levothyroxi Yes Take by Uni vers ne sodium 5-31 mouth. ity of (SYNTHROID 10:06: [place] ORAL) 33 [facility] meloxicam 0 Yes 15mg Take 1 Univer s 15 mg 5-31 tablet by ity of tablet 10:06: mouth in [place] 33 the Medical morning. Branch levothyroxi Yes Synthroid U nivers ne 125 mcg 5-31 125 mcg ity of tablet 10:06: tablet [place] 33 TAKE 1 Medical TABLET BY Branch MOUTH EVERY DAY IN THE MORNING mv-mn/folic 2022-0 Yes 1{tbl} Take 1 [facility] [place] ac/calcium/ 5-31 tablet by ity of vit K1 10:06: mouth in [place] (WOMEN'S 50 33 the Medical PLUS morning. Branch MULTIVITAMI N ORAL) levothyroxi 0 Yes Take by Uni vers ne sodium 5-31 mouth. ity of (SYNTHROID 10:06: [place] ORAL) 33 Medical Branch meloxicam 0 Yes 15mg Take 1 Univer s 15 mg 5-31 tablet by ity of tablet 10:06: mouth in [place] 33 the Medical morning. Branch levothyroxi Yes Synthroid U nivers ne 125 mcg 5-31 125 mcg ity of tablet 10:06: tablet 33 TAKE 1 Medical TABLET BY Branch MOUTH EVERY DAY IN THE MORNING mv-mn/folic 0 Yes 1{tbl} Take 1 [place] ac/calcium/ 5-31 tablet by ity of vit K1 10:06: mouth in [place] (WOMEN'S 50 33 the Medical PLUS morning. Branch MULTIVITAMI N ORAL) levothyroxi Yes Take by Uni vers ne sodium 5-31 mouth. ity of (SYNTHROID 10:06: [place] ORAL) 33 Medical Branch meloxicam Yes 15mg Take 1 Univer s 15 mg 5-31 tablet by ity of tablet 10:06: mouth in [place] 33 the Medical morning. Branch levothyroxi Yes Synthroid U nivers ne 125 mcg 5-31 125 mcg ity of tablet 10:06: tablet [place] 33 TAKE 1 Medical TABLET BY Branch MOUTH EVERY DAY IN THE MORNING mv-mn/folic 0 Yes 1{tbl} Take 1 [facility] [place] ac/calcium/ 5-31 tablet by ity of vit K1 10:06: mouth in [place] (WOMEN'S 50 33 the Medical PLUS morning. Branch MULTIVITAMI N ORAL) levothyroxi Yes Take by Uni vers ne sodium 5-31 mouth. ity of (SYNTHROID 10:06: [place] ORAL) 33 Medical Branch levothyroxi Yes Take by Uni vers ne sodium 5-31 mouth. ity of (SYNTHROID 10:06: [place] ORAL) 33 Medical Branch levothyroxi 0 Yes Take by Uni vers ne sodium 5-31 mouth. ity of (SYNTHROID 10:06: [place] ORAL) 33 Medical Branch levothyroxi 0 Yes Take by Uni vers ne sodium 5-31 mouth. ity of (SYNTHROID 10:06: [place] ORAL) 33 Medical Branch levothyroxi 0 Yes Take by Uni vers ne sodium 5-31 mouth. ity of (SYNTHROID 10:06: [place] ORAL) 33 Medical Branch levothyroxi 0 Yes Take by Uni vers ne sodium 5-31 mouth. ity of (SYNTHROID 10:06: [place] ORAL) 33 Medical Branch levothyroxi 0 Yes Take by Uni vers ne sodium 5-31 mouth. ity of (SYNTHROID 10:06: [place] ORAL) 33 Medical Branch levothyroxi 0 Yes Take by Uni vers ne sodium 5-31 mouth. ity of (SYNTHROID 10:06: [place] ORAL) 33 Medical Branch levothyroxi 0 Yes Take by Uni vers ne sodium 5-31 mouth. ity of (SYNTHROID 10:06: [place] ORAL) 33 Medical Branch levothyroxi 0 Yes Take by Uni vers ne sodium 5-31 mouth. ity of (SYNTHROID 10:06: [place] ORAL) 33 Medical Branch levothyroxi 0 Yes Take by Uni vers ne sodium 5-31 mouth. ity of (SYNTHROID 10:06: [place] ORAL) 33 Medical Branch levothyroxi 0 Yes Take by Uni vers ne sodium 5-31 mouth. ity of (SYNTHROID 10:06: [place] ORAL) 33 Medical Branch levothyroxi 0 Yes Take by Uni vers ne sodium 5-31 mouth. ity of (SYNTHROID 10:06: [place] ORAL) 33 Medical Branch levothyroxi 0 Yes Take by Uni vers ne sodium 5-31 mouth. ity of (SYNTHROID 10:06: [place] ORAL) 33 Medical Branch levothyroxi 0 Yes Take by Uni vers ne sodium 5-31 mouth. ity of (SYNTHROID 10:06: [place] ORAL) 33 Medical Branch levothyroxi 0 Yes Synthroid U nivers ne 5-26 125 mcg ity of (SYNTHROID) 10:42: tablet [place] 125 mcg 37 TAKE 1 Medical tablet TABLET BY Branch MOUTH EVERY DAY IN THE MORNING levothyroxi 0 Yes Synthroid U nivers ne 5-26 125 mcg ity of (SYNTHROID) 10:42[place] 125 [place] 37 TAKE 1 Medical tablet TABLET BY Branch MOUTH EVERY DAY IN THE MORNING levothyroxi 0 Yes Synthroid [place] 5-26 125 mcg ity of (SYNTHROID) 10:42[place] 125 mcg 37 TAKE 1 Medical tablet TABLET BY Branch MOUTH EVERY DAY IN THE MORNING levothyroxi 2022-0 Yes Take by Uni vers ne sodium 5-23 mouth. ity of (SYNTHROID 11:40: [place] ORAL) Medical Branch meloxicam 0 Yes 15mg Take 1 Univer s 15 mg 5-23 tablet by ity of tablet 11:40: mouth in [place] 03 the Medical morning. Branch levothyroxi 2022-0 Yes Take by Uni vers ne sodium 5-23 mouth. ity of (SYNTHROID 11:40: [place] ORAL) [facility] Branch meloxicam 0 Yes 15mg Take 1 Univer s 15 mg 5-23 tablet by ity of tablet 11:40: mouth in [place] the Medical morning. Branch levothyroxi 2022-0 Yes Take by Uni vers ne sodium 5-23 mouth. ity of (SYNTHROID 11:40: [place] ORAL) [facility] Branch meloxicam 0 Yes 15mg Take 1 Univer s 15 mg 5-23 tablet by ity of tablet 11:40: mouth in [place] the Medical morning. Branch levothyroxi 2022-0 Yes Take by Uni vers ne sodium 5-23 mouth. ity of (SYNTHROID 11:40: [place] ORAL) Medical Branch meloxicam 2022-0 Yes 15mg Take 1 Univer s 15 mg 5-23 tablet by ity of tablet 11:40: mouth in [place] the Medical morning. Branch levothyroxi 2022-0 Yes Take by Uni vers ne sodium 5-23 mouth. ity of (SYNTHROID 11:40: [place] ORAL) Medical Branch meloxicam 2022-0 Yes 15mg Take 1 Univer s 15 mg 5-23 tablet by ity of tablet 11:40: mouth in [place] the Medical morning. Branch levothyroxi 2022-0 Yes Take by Uni vers ne sodium 5-23 mouth. ity of (SYNTHROID 11:40: [place] ORAL) Medical Branch meloxicam 2022-0 Yes 15mg Take 1 Univer s 15 mg 5-23 tablet by ity of tablet 11:40: mouth in [place] 03 the Medical morning. Branch levothyroxi 2022-0 Yes Take by Uni vers ne sodium 5-23 mouth. ity of (SYNTHROID 11:40: [place] ORAL) Medical Branch meloxicam Yes 15mg Take 1 Univer s 15 mg 5-23 tablet by ity of tablet 11:40: mouth in [place] the morning. Branch levothyroxi Yes Take by Uni vers ne sodium 5-23 mouth. ity of (SYNTHROID 11:40: [place] ORAL) Medical [place] meloxicam Yes 15mg Take 1 Univer s 15 mg 5-23 tablet by ity of tablet 11:40: mouth in [place] the morning. Branch Augmentin Augmentin No 1 TID Augmentin Shanna [...] Orthope mg-potassiu mg-potassiu mg-potassi dic m m um Sports clavulanate clavulanate clavulanat Medicin 125 mg [...] MORNING MORNING EVERY DAY IN THE MORNING Immunizations Ordered Filled Immunization Date Status Comments [facility] e Immunization Name Name Pneumococcal 13 2020-11-14 Completed Universit y of Conjugate, PCV13 00:00:00 [facility] (Prevnar 13) Branch TDAP 2020-11-14 Completed University 00:00:00 [facility] Pneumococcal 13 2020-11-14 Completed Universit y of Conjugate, PCV13 00:00:00 [facility] dical (Prevnar 13) Branch [facility] 2020-11-14 Completed University of 00:00:00 [facility] Pneumococcal 13 2020-11-14 Completed Universit y of Conjugate, PCV13 00:00:00 [facility] dical (Prevnar 13) Branch [facility] 2020-11-14 Completed University of 00:00:00 [facility] Pneumococcal 13 2020-11-14 Completed Universit y of Conjugate, PCV13 00:00:00 [facility] dical (Prevnar 13) Branch [facility] 2020-11-14 Completed University of 00:00:00 [facility] Pneumococcal 13 2020-11-14 Completed Universit y of Conjugate, PCV13 00:00:00 [facility] dical (Prevnar 13) Branch [facility] 2020-11-14 Completed University of 00:00:00 [facility] Pneumococcal 13 2020-11-14 Completed Universit y of Conjugate, PCV13 00:00:00 [facility] dical (Prevnar 13) Branch [facility] 2020-11-14 Completed University of 00:00:00 [facility] Pneumococcal 13 2020-11-14 Completed Universit y of Conjugate, PCV13 00:00:00 [facility] dical (Prevnar 13) Branch [facility] 2020-11-14 Completed University of 00:00:00 [facility] Pneumococcal 13 2020-11-14 Completed Universit y of Conjugate, PCV13 00:00:00 [facility] dical (Prevnar 13) Branch [facility] 2020-11-14 Completed University of 00:00:00 [facility] Pneumococcal 13 2020-11-14 Completed Universit y of Conjugate, PCV13 00:00:00 [facility] dical (Prevnar 13) Branch [facility] 2020-11-14 Completed University of 00:00:00 [facility] Pneumococcal 13 2020-11-14 Completed Universit y of Conjugate, PCV13 00:00:00 [facility] dical (Prevnar 13) Branch [facility] 2020-11-14 Completed University of 00:00:00 [facility] Pneumococcal 13 2020-11-14 Completed Universit y of Conjugate, PCV13 00:00:00 [facility] dical (Prevnar 13) Branch [facility] 2020-11-14 Completed University of 00:00:00 [facility] Pneumococcal 13 2020-11-14 Completed Universit y of Conjugate, PCV13 00:00:00 [facility] dical (Prevnar 13) Branch [facility] 2020-11-14 Completed University of 00:00:00 [facility] Pneumococcal 13 2020-11-14 Completed Universit y of Conjugate, PCV13 00:00:00 [facility] dical (Prevnar 13) Branch [facility] 2020-11-14 Completed University of 00:00:00 [facility] Pneumococcal 13 2020-11-14 Completed Universit y of Conjugate, PCV13 00:00:00 [facility] dical (Prevnar 13) Branch [facility] 2020-11-14 Completed University of 00:00:00 [facility] Pneumococcal 13 2020-11-14 Completed Universit y of Conjugate, PCV13 00:00:00 [facility] dical (Prevnar 13) Branch [facility] 2020-11-14 Completed University of 00:00:00 [facility] Pneumococcal 13 2020-11-14 Completed Universit y of Conjugate, PCV13 00:00:00 [facility] dical (Prevnar 13) Branch [facility] 2020-11-14 Completed University of 00:00:00 [facility] Pneumococcal 13 2020-11-14 Completed Universit y of Conjugate, PCV13 00:00:00 [facility] dical (Prevnar 13) Branch [facility] 2020-11-14 Completed University of 00:00:00 [facility] Pneumococcal 13 2020-11-14 Completed Universit y of Conjugate, PCV13 00:00:00 [facility] dical (Prevnar 13) Branch [facility] 2020-11-14 Completed University of 00:00:00 [facility] Pneumococcal 13 2020-11-14 Completed Universit y of Conjugate, PCV13 00:00:00 [facility] dical (Prevnar 13) Branch [facility] 2020-11-14 Completed University of 00:00:00 [facility] Pneumococcal 13 2020-11-14 Completed Universit y of Conjugate, PCV13 00:00:00 [facility] dical (Prevnar 13) Branch [facility] 2020-11-14 Completed University of 00:00:00 [facility] Pneumococcal 13 2020-11-14 Completed Universit y of Conjugate, PCV13 00:00:00 [facility] dical (Prevnar 13) Branch [facility] 2020-11-14 Completed University of 00:00:00 [facility] Pneumococcal 13 2020-11-14 Completed Universit y of Conjugate, PCV13 00:00:00 [facility] dical (Prevnar 13) Branch [facility] 2020-11-14 Completed University of 00:00:00 [facility] Pneumococcal 13 2020-11-14 Completed Universit y of Conjugate, PCV13 00:00:00 [facility] dical (Prevnar 13) Branch [facility] 2020-11-14 Completed University of 00:00:00 [facility] Pneumococcal 13 2020-11-14 Completed Universit y of Conjugate, PCV13 00:00:00 [facility] dical (Prevnar 13) Branch [facility] 2020-11-14 Completed University of 00:00:00 [facility] Pneumococcal 13 2020-11-14 Completed Universit y of Conjugate, PCV13 00:00:00 [facility] dical (Prevnar 13) Branch [facility] 2020-11-14 Completed University of 00:00:00 [facility] Pneumococcal 13 2020-11-14 Completed Universit y of Conjugate, PCV13 00:00:00 [facility] dical (Prevnar 13) Branch [facility] 2020-11-14 Completed University of 00:00:00 [facility] Pneumococcal 13 2020-11-14 Completed Universit y of Conjugate, PCV13 00:00:00 [facility] dical (Prevnar 13) Branch [facility] 2020-11-14 Completed University of 00:00:00 [facility] Pneumococcal 13 2020-11-14 Completed Universit y of Conjugate, PCV13 00:00:00 [facility] dical (Prevnar 13) Branch [facility] 2020-11-14 Completed University of 00:00:00 [facility] Pneumococcal 13 2020-11-14 Completed Universit y of Conjugate, PCV13 00:00:00 [facility] dical (Prevnar 13) Branch [facility] 2020-11-14 Completed University of 00:00:00 [facility] Pneumococcal 13 2020-11-14 Completed Universit y of Conjugate, PCV13 00:00:00 [facility] dical (Prevnar 13) Branch [facility] 2020-11-14 Completed University of 00:00:00 [facility] Pneumococcal 13 2020-11-14 Completed Universit y of Conjugate, PCV13 00:00:00 [facility] dical (Prevnar 13) Branch [facility] 2020-11-14 Completed University of 00:00:00 [facility] Pneumococcal 13 2020-11-14 Completed Universit y of Conjugate, PCV13 00:00:00 [facility] dical (Prevnar 13) Branch [facility] 2020-11-14 Completed University of 00:00:00 [facility] Pneumococcal 13 2020-11-14 Completed Universit y of Conjugate, PCV13 00:00:00 [facility] dical (Prevnar 13) Branch [facility] 2020-11-14 Completed University of 00:00:00 [facility] Pneumococcal 13 2020-11-14 Completed Universit y of Conjugate, PCV13 00:00:00 [facility] dical (Prevnar 13) Branch [facility] 2020-11-14 Completed University of 00:00:00 [facility] Pneumococcal 13 2020-11-14 Completed Universit y of Conjugate, PCV13 00:00:00 [facility] dical (Prevnar 13) Branch Pneumococcal 13 2020-11-14 Completed Universit y of Conjugate, PCV13 00:00:00 [facility] dical (Prevnar 13) Branch [facility] 2020-11-14 Completed University of 00:00:00 [facility] 2020-11-14 Completed University of 00:00:00 [facility] Pneumococcal 13 2020-11-14 Completed Universit y of Conjugate, PCV13 00:00:00 [facility] dical (Prevnar 13) Branch [facility] 2020-11-14 Completed University of 00:00:00 [facility] Pneumococcal 13 2020-11-14 Completed Universit y of Conjugate, PCV13 00:00:00 [facility] dical (Prevnar 13) Branch [facility] 2020-11-14 Completed University of 00:00:00 [facility] Pneumococcal 13 2020-11-14 Completed Universit y of Conjugate, PCV13 00:00:00 [facility] dical (Prevnar 13) Branch [facility] 2020-11-14 Completed University of 00:00:00 [facility] Pneumococcal 13 2020-11-14 Completed Universit y of Conjugate, PCV13 00:00:00 [facility] dical (Prevnar 13) Branch [facility] 2020-11-14 Completed University of 00:00:00 [facility] SARS-COV-2 COVID-19 2020-04-25 Completed Unive rsity of DEMARCO/J&J VACCINE 00:00:00 [facility] SARS-COV-2 COVID-19 2020-04-25 Completed Unive rsity of DEMARCO/J&J VACCINE 00:00:00 [facility] SARS-COV-2 COVID-19 2020-04-25 Completed Unive rsity of DEMARCO/J&J VACCINE 00:00:00 [facility] SARS-COV-2 COVID-19 2020-04-25 Completed Unive rsity of DEMARCO/J&J VACCINE 00:00:00 [facility] SARS-COV-2 COVID-19 2020-04-25 Completed Unive rsity of DEMARCO/J&J VACCINE 00:00:00 [facility] SARS-COV-2 COVID-19 2020-04-25 Completed Unive rsity of DEMARCO/J&J VACCINE 00:00:00 [facility] SARS-COV-2 COVID-19 2020-04-25 Completed Unive rsity of DEMARCO/J&J VACCINE 00:00:00 [facility] SARS-COV-2 COVID-19 2020-04-25 Completed Unive rsity of DEMARCO/J&J VACCINE 00:00:00 [facility] SARS-COV-2 COVID-19 2020-04-25 Completed Unive rsity of DEMARCO/J&J VACCINE 00:00:00 [facility] SARS-COV-2 COVID-19 2020-04-25 Completed Unive rsity of DEMARCO/J&J VACCINE 00:00:00 [facility] SARS-COV-2 COVID-19 2020-04-25 Completed Unive rsity of DEMARCO/J&J VACCINE 00:00:00 [facility] SARS-COV-2 COVID-19 2020-04-25 Completed Unive rsity of DEMARCO/J&J VACCINE 00:00:00 [facility] SARS-COV-2 COVID-19 2020-04-25 Completed Unive rsity of DEMARCO/J&J VACCINE 00:00:00 [facility] SARS-COV-2 COVID-19 2020-04-25 Completed Unive rsity of DEMARCO/J&J VACCINE 00:00:00 [facility] SARS-COV-2 COVID-19 2020-04-25 Completed Unive rsity of DEMARCO/J&J VACCINE 00:00:00 [place] [facility] SARS-COV-2 COVID-19 2020-04-25 Completed Unive rsity of DEMARCO/J&J VACCINE 00:00:00 [facility] SARS-COV-2 COVID-19 2020-04-25 Completed Unive rsity of DEMARCO/J&J VACCINE 00:00:00 [facility] SARS-COV-2 COVID-19 2020-04-25 Completed Unive rsity of DEMARCO/J&J VACCINE 00:00:00 [facility] SARS-COV-2 COVID-19 2020-04-25 Completed Unive rsity of DEMARCO/J&J VACCINE 00:00:00 [facility] SARS-COV-2 COVID-19 2020-04-25 Completed Unive rsity of DEMARCO/J&J VACCINE 00:00:00 [facility] SARS-COV-2 COVID-19 2020-04-25 Completed Unive rsity of DEMARCO/J&J VACCINE 00:00:00 [facility] SARS-COV-2 COVID-19 2020-04-25 Completed Unive rsity of DEMARCO/J&J VACCINE 00:00:00 [facility] SARS-COV-2 COVID-19 2020-04-25 Completed Unive rsity of DEMARCO/J&J VACCINE 00:00:00 [facility] SARS-COV-2 COVID-19 2020-04-25 Completed Unive rsity of DEMARCO/J&J VACCINE 00:00:00 [facility] SARS-COV-2 COVID-19 2020-04-25 Completed Unive rsity of DEMARCO/J&J VACCINE 00:00:00 [facility] SARS-COV-2 COVID-19 2020-04-25 Completed Unive rsity of DEMARCO/J&J VACCINE 00:00:00 [facility] SARS-COV-2 COVID-19 2020-04-25 Completed Unive rsity of DEMARCO/J&J VACCINE 00:00:00 [facility] SARS-COV-2 COVID-19 2020-04-25 Completed Unive rsity of DEMARCO/J&J VACCINE 00:00:00 [facility] SARS-COV-2 COVID-19 2020-04-25 Completed Unive rsity of DEMARCO/J&J VACCINE 00:00:00 [facility] SARS-COV-2 COVID-19 2020-04-25 Completed Unive rsity of DEMARCO/J&J VACCINE 00:00:00 [facility] SARS-COV-2 COVID-19 2020-04-25 Completed Unive rsity of DEMARCO/J&J VACCINE 00:00:00 [facility] SARS-COV-2 COVID-19 2020-04-25 Completed Unive rsity of DEMARCO/J&J VACCINE 00:00:00 [facility] SARS-COV-2 COVID-19 2020-04-25 Completed Unive rsity of DEMARCO/J&J VACCINE 00:00:00 [facility] SARS-COV-2 COVID-19 2020-04-25 Completed Unive rsity of DEMARCO/J&J VACCINE 00:00:00 [facility] SARS-COV-2 COVID-19 2020-04-25 Completed Unive rsity of DEMARCO/J&J VACCINE 00:00:00 [facility] SARS-COV-2 COVID-19 2020-04-25 Completed Unive rsity of DEMARCO/J&J VACCINE 00:00:00 [facility] SARS-COV-2 COVID-19 2020-04-25 Completed Unive rsity of DEMARCO/J&J VACCINE 00:00:00 [facility] SARS-COV-2 COVID-19 2020-04-25 Completed Unive rsity of DEMARCO/J&J VACCINE 00:00:00 [facility] SARS-COV-2 COVID-19 2020-04-25 Completed Unive rsity of DEMARCO/J&J VACCINE 00:00:00 [facility] SARS-COV-2 COVID-19 2020-04-25 Completed Unive rsity of DEMARCO/J&J VACCINE 00:00:00 [facility] Pneumococcal 13 2017-11-11 Completed Universit y of Conjugate, PCV13 00:00:00 [place] [facility] (Prevnar 13) Branch Pneumococcal 2017-11-11 Completed University o f Polysaccharide, 00:00:00 [place] [facility] PPSV23 (PNEUMOVAX) Branch Pneumococcal 2017-11-11 Completed Universit y of Conjugate, PCV13 00:00:00 [place] [facility] (Prevnar 13) Branch Pneumococcal 2017-11-11 Completed University o f Polysaccharide, 00:00:00 [place] [facility] PPSV23 (PNEUMOVAX) Branch Pneumococcal 13 2017-11-11 Completed Universit y of Conjugate, PCV13 00:00:00 [place] [facility] (Prevnar 13) Branch Pneumococcal 2017-11-11 Completed University o f Polysaccharide, 00:00:00 [place] [facility] PPSV23 (PNEUMOVAX) Branch Pneumococcal 13 2017-11-11 Completed Universit y of Conjugate, PCV13 00:00:00 [place] [facility] (Prevnar 13) Branch Pneumococcal 2017-11-11 Completed University o f Polysaccharide, 00:00:00 [place] [facility] PPSV23 (PNEUMOVAX) Branch Pneumococcal 13 2017-11-11 Completed Universit y of Conjugate, PCV13 00:00:00 [place] [facility] (Prevnar 13) Branch Pneumococcal 2017-11-11 Completed University o f Polysaccharide, 00:00:00 [place] [facility] PPSV23 (PNEUMOVAX) Branch Pneumococcal 13 2017-11-11 Completed Universit y of Conjugate, PCV13 00:00:00 [place] [facility] (Prevnar 13) Branch Pneumococcal 2017-11-11 Completed University o f Polysaccharide, 00:00:00 [place] [facility] PPSV23 (PNEUMOVAX) Branch Pneumococcal 13 2017-11-11 Completed Universit y of Conjugate, PCV13 00:00:00 [place] [facility] (Prevnar 13) Branch Pneumococcal 2017-11-11 Completed University o f Polysaccharide, 00:00:00 [place] [facility] PPSV23 (PNEUMOVAX) Branch Pneumococcal 13 2017-11-11 Completed Universit y of Conjugate, PCV13 00:00:00 [place] [facility] (Prevnar 13) Branch Pneumococcal 2017-11-11 Completed University o f Polysaccharide, 00:00:00 [place] [facility] PPSV23 (PNEUMOVAX) Branch Pneumococcal 13 2017-11-11 Completed Universit y of Conjugate, PCV13 00:00:00 [place] [facility] (Prevnar 13) Branch Pneumococcal 2017-11-11 Completed University o f Polysaccharide, 00:00:00 [place] [facility] PPSV23 (PNEUMOVAX) Branch Pneumococcal 13 2017-11-11 Completed Universit y of Conjugate, PCV13 00:00:00 [place] [facility] (Prevnar 13) Branch Pneumococcal 2017-11-11 Completed University o f Polysaccharide, 00:00:00 [place] [facility] PPSV23 (PNEUMOVAX) Branch Pneumococcal 13 2017-11-11 Completed Universit y of Conjugate, PCV13 00:00:00 [place] [facility] (Prevnar 13) Branch Pneumococcal 2017-11-11 Completed University o f Polysaccharide, 00:00:00 [place] [facility] PPSV23 (PNEUMOVAX) Branch Pneumococcal 13 2017-11-11 Completed Universit y of Conjugate, PCV13 00:00:00 [place] [facility] (Prevnar 13) Branch Pneumococcal 2017-11-11 Completed University o f Polysaccharide, 00:00:00 [place] [facility] PPSV23 (PNEUMOVAX) Branch Pneumococcal 13 2017-11-11 Completed Universit y of Conjugate, PCV13 00:00:00 [place] [facility] (Prevnar 13) Branch Pneumococcal 2017-11-11 Completed University o f Polysaccharide, 00:00:00 [place] [facility] PPSV23 (PNEUMOVAX) Branch Pneumococcal 13 2017-11-11 Completed Universit y of Conjugate, PCV13 00:00:00 [place] [facility] (Prevnar 13) Branch Pneumococcal 2017-11-11 Completed University o f Polysaccharide, 00:00:00 [place] [facility] PPSV23 (PNEUMOVAX) Branch Pneumococcal 13 2017-11-11 Completed Universit y of Conjugate, PCV13 00:00:00 [place] [facility] (Prevnar 13) Branch Pneumococcal 2017-11-11 Completed University o f Polysaccharide, 00:00:00 [place] [facility] PPSV23 (PNEUMOVAX) Branch Pneumococcal 13 2017-11-11 Completed Universit y of Conjugate, PCV13 00:00:00 [place] [facility] (Prevnar 13) Branch Pneumococcal 2017-11-11 Completed University o f Polysaccharide, 00:00:00 [place] [facility] PPSV23 (PNEUMOVAX) Branch Pneumococcal 13 2017-11-11 Completed Universit y of Conjugate, PCV13 00:00:00 [place] [facility] (Prevnar 13) Branch Pneumococcal 2017-11-11 Completed University o f Polysaccharide, 00:00:00 [place] [facility] PPSV23 (PNEUMOVAX) Branch Pneumococcal 13 2017-11-11 Completed Universit y of Conjugate, PCV13 00:00:00 [place] [facility] (Prevnar 13) Branch Pneumococcal 2017-11-11 Completed University o f Polysaccharide, 00:00:00 [place] [facility] PPSV23 (PNEUMOVAX) Branch Pneumococcal 13 2017-11-11 Completed Universit y of Conjugate, PCV13 00:00:00 [place] [facility] (Prevnar 13) Branch Pneumococcal 2017-11-11 Completed University o f Polysaccharide, 00:00:00 [place] [facility] PPSV23 (PNEUMOVAX) Branch Pneumococcal 13 2017-11-11 Completed Universit y of Conjugate, PCV13 00:00:00 [place] [facility] (Prevnar 13) Branch Pneumococcal 2017-11-11 Completed University o f Polysaccharide, 00:00:00 [place] [facility] PPSV23 (PNEUMOVAX) Branch Pneumococcal 13 2017-11-11 Completed Universit y of Conjugate, PCV13 00:00:00 [place] [facility] (Prevnar 13) Branch Pneumococcal 2017-11-11 Completed University o f Polysaccharide, 00:00:00 [place] [facility] PPSV23 (PNEUMOVAX) Branch Pneumococcal 13 2017-11-11 Completed Universit y of Conjugate, PCV13 00:00:00 [place] [facility] (Prevnar 13) Branch Pneumococcal 2017-11-11 Completed University o f Polysaccharide, 00:00:00 [place] [facility] PPSV23 (PNEUMOVAX) Branch Pneumococcal 13 2017-11-11 Completed Universit y of Conjugate, PCV13 00:00:00 [place] [facility] (Prevnar 13) Branch Pneumococcal 2017-11-11 Completed University o f Polysaccharide, 00:00:00 [place] [facility] PPSV23 (PNEUMOVAX) Branch Pneumococcal 13 2017-11-11 Completed Universit y of Conjugate, PCV13 00:00:00 [place] [facility] (Prevnar 13) Branch Pneumococcal 2017-11-11 Completed University o f Polysaccharide, 00:00:00 [place] [facility] PPSV23 (PNEUMOVAX) Branch Pneumococcal 13 2017-11-11 Completed Universit y of Conjugate, PCV13 00:00:00 [place] [facility] (Prevnar 13) Branch Pneumococcal 2017-11-11 Completed University o f Polysaccharide, 00:00:00 [place] [facility] PPSV23 (PNEUMOVAX) Branch Pneumococcal 13 2017-11-11 Completed Universit y of Conjugate, PCV13 00:00:00 [place] [facility] (Prevnar 13) Branch Pneumococcal 2017-11-11 Completed University o f Polysaccharide, 00:00:00 [place] [facility] PPSV23 (PNEUMOVAX) Branch Pneumococcal 13 2017-11-11 Completed Universit y of Conjugate, PCV13 00:00:00 [place] [facility] (Prevnar 13) Branch Pneumococcal 2017-11-11 Completed University o f Polysaccharide, 00:00:00 [place] [facility] PPSV23 (PNEUMOVAX) Branch Pneumococcal 13 2017-11-11 Completed Universit y of Conjugate, PCV13 00:00:00 [place] [facility] (Prevnar 13) Branch Pneumococcal 2017-11-11 Completed University o f Polysaccharide, 00:00:00 [place] [facility] PPSV23 (PNEUMOVAX) Branch Pneumococcal 13 2017-11-11 Completed Universit y of Conjugate, PCV13 00:00:00 [place] [facility] (Prevnar 13) Branch Pneumococcal 2017-11-11 Completed University o f Polysaccharide, 00:00:00 [place] [facility] PPSV23 (PNEUMOVAX) Branch Pneumococcal 13 2017-11-11 Completed Universit y of Conjugate, PCV13 00:00:00 [place] [facility] (Prevnar 13) Branch Pneumococcal 2017-11-11 Completed University o f Polysaccharide, 00:00:00 [place] [facility] PPSV23 (PNEUMOVAX) Branch Pneumococcal 13 2017-11-11 Completed Universit y of Conjugate, PCV13 00:00:00 [place] [facility] (Prevnar 13) Branch Pneumococcal 2017-11-11 Completed University o f Polysaccharide, 00:00:00 [place] [facility] PPSV23 (PNEUMOVAX) Branch Pneumococcal 13 2017-11-11 Completed Universit y of Conjugate, PCV13 00:00:00 [place] [facility] (Prevnar 13) Branch Pneumococcal 2017-11-11 Completed University o f Polysaccharide, 00:00:00 [place] [facility] PPSV23 (PNEUMOVAX) Branch Pneumococcal 13 2017-11-11 Completed Universit y of Conjugate, PCV13 00:00:00 [place] [facility] (Prevnar 13) Branch Pneumococcal 2017-11-11 Completed University o f Polysaccharide, 00:00:00 [place] [facility] PPSV23 (PNEUMOVAX) Branch Pneumococcal 13 2017-11-11 Completed Universit y of Conjugate, PCV13 00:00:00 [place] [facility] (Prevnar 13) Branch Pneumococcal 2017-11-11 Completed University o f Polysaccharide, 00:00:00 [place] [facility] PPSV23 (PNEUMOVAX) Branch Pneumococcal 13 2017-11-11 Completed Universit y of Conjugate, PCV13 00:00:00 [place] [facility] (Prevnar 13) Branch Pneumococcal 13 2017-11-11 Completed Universit y of Conjugate, PCV13 00:00:00 [place] [facility] (Prevnar 13) Branch Pneumococcal 2017-11-11 Completed University o f Polysaccharide, 00:00:00 [place] [facility] PPSV23 (PNEUMOVAX) Branch Pneumococcal 13 2017-11-11 Completed Universit y of Conjugate, PCV13 00:00:00 [place] [facility] (Prevnar 13) Branch Pneumococcal 2017-11-11 Completed University o f Polysaccharide, 00:00:00 [place] [facility] PPSV23 (PNEUMOVAX) Branch Pneumococcal 2017-11-11 Completed University o f Polysaccharide, 00:00:00 [place] [facility] PPSV23 (PNEUMOVAX) Branch Pneumococcal 13 2017-11-11 Completed Universit y of Conjugate, PCV13 00:00:00 [place] [facility] (Prevnar 13) Branch Pneumococcal 2017-11-11 Completed University o f Polysaccharide, 00:00:00 [place] [facility] PPSV23 (PNEUMOVAX) Branch Pneumococcal 13 2017-11-11 Completed Universit y of Conjugate, PCV13 00:00:00 [place] [facility] (Prevnar 13) Branch Pneumococcal 2017-11-11 Completed University o f Polysaccharide, 00:00:00 [place] [facility] PPSV23 (PNEUMOVAX) Branch Pneumococcal 13 2017-11-11 Completed Universit y of Conjugate, PCV13 00:00:00 [place] [facility] (Prevnar 13) Branch Pneumococcal 2017-11-11 Completed University o f Polysaccharide, 00:00:00 [place] [facility] PPSV23 (PNEUMOVAX) Branch Vital Signs Vital Name Observation Time Observation Value Comments Source Systolic blood 2022-08-31 133 mm[Hg] [facility] pressure 14:59:00 [facility] Diastolic blood 2022-08-31 81 mm[Hg] University o f pressure 14:59:00 [facility] Heart rate 2022-08-31 79 /min [facility] 14:59:00 [facility] Body temperature 2022-08-31 36.28 Mira Evangeline of 14:59:00 [facility] Respiratory rate 2022-08-31 18 /min Evangeline of 14:59:00 [facility] Body height 2022-08-31 170.2 cm Evangeline of 14:59:00 [facility] Body weight 2022-08-31 136.669 kg Evangeline of 14:59:00 [facility] BMI 2022-08-31 47.19 kg/m2 Evangeline of 14:59:00 [facility] Oxygen saturation 2022-08-31 98 /min University of in Arterial blood 14:59:00 [facility] power by Pulse oximetry Branch Systolic blood 2022-08-11 142 mm[Hg] University of pressure 01:20:00 [facility] Branch Diastolic blood 2022-08-11 88 mm[Hg] University o f pressure 01:20:00 [facility] Respiratory rate 2022-08-11 18 /min University of 01:20:00 [facility] Oxygen saturation 2022-08-11 95 /min University of in Arterial blood 01:20:00 [facility] by Pulse oximetry Branch Body temperature 2022-08-10 36.78 Mira University of 23:15:00 [facility] Heart rate 2022-08-10 83 /min University of 14:51:00 [facility] Body height 2022-08-10 170.2 cm University of 14:51:00 [facility] Body weight 2022-08-10 136.8 kg University of 14:51:00 [facility] BMI 2022-08-10 47.24 kg/m2 University of 14:51:00 [facility] Systolic blood 2022-08-10 156 mm[Hg] University of pressure 14:51:00 [facility] Diastolic blood 2022-08-10 99 mm[Hg] University o f pressure 14:51:00 [facility] Heart rate 2022-08-10 83 /min University of 14:51:00 [facility] Body temperature 2022-08-10 37.44 Mira University of 14:51:00 [facility] Respiratory rate 2022-08-10 18 /min University of 14:51:00 [facility] Body height 2022-08-10 170.2 cm University of 14:51:00 [facility] Body weight 2022-08-10 136.8 kg University of 14:51:00 [facility] BMI 2022-08-10 47.24 kg/m2 University of 14:51:00 [facility] Oxygen saturation 2022-08-10 95 /min University of in Arterial blood 14:51:00 [facility] by Pulse oximetry Branch Systolic blood 2022-08-05 109 mm[Hg] University of pressure 19:22:00 [facility] Branch Diastolic blood 2022-08-05 72 mm[Hg] University o f pressure 19:22:00 [facility] Heart rate 2022-08-05 88 /min University of 19:22:00 [facility] Body temperature 2022-08-05 36.11 Mira University of 19:22:00 [facility] Respiratory rate 2022-08-05 20 /min University of 19:22:00 [facility] Body height 2022-08-05 170.2 cm University of 19:22:00 [facility] Body weight 2022-08-05 137.893 kg University of 19:22:00 [facility] BMI 2022-08-05 47.61 kg/m2 University of 19:22:00 [facility] Oxygen saturation 2022-08-05 99 /min University of in Arterial blood 19:22:00 [place] [facility] power by Pulse oximetry Branch Systolic blood 2022-07-31 141 mm[Hg] University of pressure 14:23:00 [facility] Diastolic blood 2022-07-31 90 mm[Hg] University o f pressure 14:23:00 [facility] Respiratory rate 2022-07-31 14 /min University of 14:23:00 [facility] Body height 2022-07-31 170.2 cm University of 14:23:00 [facility] Body weight 2022-07-31 136.079 kg University of 14:23:00 [facility] BMI 2022-07-31 46.99 kg/m2 University of 14:23:00 [facility] Systolic blood 2022-07-23 119 mm[Hg] University of pressure 14:54:00 [facility] Diastolic blood 2022-07-23 74 mm[Hg] University o f pressure 14:54:00 [facility] Heart rate 2022-07-23 89 /min University of 14:53:00 [facility] Body temperature 2022-07-23 35.89 Mira University of 14:53:00 [facility] Body height 2022-07-23 170.2 cm University of 14:53:00 [facility] Body weight 2022-07-23 137.5 kg University of 14:53:00 [facility] BMI 2022-07-23 47.48 kg/m2 University of 14:53:00 [facility] Oxygen saturation 2022-07-23 94 /min University of in Arterial blood 14:53:00 [place] [facility] power by Pulse oximetry Branch Body height 2022-07-20 168 cm Verified with University of 15:10:00 Angy [facility] Body weight 2022-07-20 136.487 kg Verified with University [facility]00 [facility] BMI 2022-07-20 48.36 kg/m2 University of 15::00 [facility] Systolic blood 2022-07-20 116 mm[Hg] University of pressure 15:09:00 [facility] Diastolic blood 2022-07-20 79 mm[Hg] University o f pressure 15:09:00 [facility] Heart rate 2022-07-20 93 /min University of 15::00 [facility] Body temperature 2022-07-20 36.78 Mira University of 15::00 [facility] Respiratory rate 2022-07-20 18 /min University of 15::00 [facility] Oxygen saturation 2022-07-20 93 /min [facility] Arterial blood 15::00 [facility] by Pulse oximetry [place] Systolic blood 2022-07-16 147 mm[Hg] University of pressure 18:03:00 [facility] Diastolic blood 2022-07-16 79 mm[Hg] University o f pressure 18:03:00 [facility] Heart rate 2022-07-16 74 /min University of 18:03:00 [facility] Body temperature 2022-07-16 36.67 Mira University of 18:03:00 [facility] Respiratory rate 2022-07-16 18 /min University of 18:03:00 [facility] Body height 2022-07-16 170.2 cm University of 18:03:00 [facility] Body weight 2022-07-16 138.347 kg University of 18::00 [facility] BMI 2022-07-16 47.77 kg/m2 University of 18:03:00 [facility] Systolic blood 2022-07-10 130 mm[Hg] University of pressure 15::00 [facility] Diastolic blood 2022-07-10 84 mm[Hg] University o f pressure 15::00 [facility] Heart rate 2022-07-10 78 /min University of 15::00 [facility] Respiratory rate 2022-07-10 18 /min University of 15::00 [facility] Body height 2022-07-10 170.2 cm University of 15::00 [facility] Body weight 2022-07-10 138.347 kg University 15:26:00 [facility] BMI 2022-07-10 47.77 kg/m2 University 15:26:00 [facility] Systolic blood 2022-07-07 135 mm[Hg] University of pressure 16:38:00 [facility] Diastolic blood 2022-07-07 79 mm[Hg] Evangeline o f pressure 16:38:00 [facility] Heart rate 2022-07-07 82 /min [facility] 16:38:00 [facility] Body temperature 2022-07-07 36.44 Mira University 16:38:00 [facility] Respiratory rate 2022-07-07 18 /min [facility] 16:38:00 [facility] Body height 2022-07-07 171.5 cm [facility] 16:38:00 [facility] Body weight 2022-07-07 137.531 kg [facility] 16:38:00 [facility] BMI 2022-07-07 46.79 kg/m2 [facility] 16:38:00 [facility] Height 2022-04-08 67 [in_i] Shanna 00:00:00 [facility] BMI (Body Mass 2022-04-08 42.8 kg/m2 Shanna Index) 00:00:00 [facility] Body Weight 2022-04-08 273 [lb_av] Shanna 00:00:00 [facility] Height 2021-07-15 67 [in_i] Shanna 00:00:00 [facility] BMI (Body Mass 2021-07-15 42.8 kg/m2 Shanna Index) 00:00:00 [facility] Body Weight 2021-07-15 273 [lb_av] Shanna 00:00:00 [facility] Procedures Procedure Date / Time Performing Clinician Source Performed PATIENT CORRESPONDENCE 2022-09-16 05:01:00 Doctor Unassigned, Un [facility] (LETTERS, USPS [place] [facility] DOCUMENTATION) PREPARE PACKED RBC 2022-08-11 03:36:33 Nohelia Calderón [facility] Branch HYSTERECTOMY VAGINAL 2022-08-10 18:04:00 [facility] ROBOT-ASSISTED WITH Medical Bran ch SALPINGO-OOPHORECTOMY CYSTOSCOPY 2022-08-10 18:04:00 Gus Nichols [facility] BIOPSY LYMPH NODE PELVIC 2022-08-10 18:04:00 Gus Nichols [facility] CAVITY [facility] PREPARE PACKED RBC 2022-08-10 16:25:26 Stephane [facility] CBC WITH DIFF 2022-08-10 15:33:00 [facility] [place] [facility] HB ABO GROUPING 2022-08-10 15:33:[address] [facility] [place] CBC WITH DIFF 2022-08-10 15:33:00 [facility] [place] [facility] HB ABO GROUPING 2022-08-10 15:33:[address] [facility] [place] ASSIGNMENT OF BENEFITS 2022-08-10 14:33:04 [facility] COMPLETE ECHOCARDIOGRAM 2022-07-31 15:25:00 Tino Hatch [facility] DOBUTAMINE STRESS TEST W Medical Branch CONTRAST CT ABDOMEN PELVIS W 2022-07-23 20:39:00 Tino Hatch [facility] CONTRAST Medical Branch PATIENT QUESTIONNAIRE 2022-07-23 05:01:00 Doctor Unassigned, Uni [facility] PATIENT QUESTIONNAIRE 2022-07-20 05:01:00 Doctor Kirasskanchan, [facility] AUTHORIZATION FOR RELEASE 2022-07-20 05:01:[address] [facility] DISCLOSURE AND CONSENT 2022-07-20 05:01:00 [facility] [place] [facility] PROCEDURES - HYSTEY PATIENT QUESTIONNAIRE 2022-07-20 05:01:00 Doctor Rick, Uni [facility] AUTHORIZATION FOR RELEASE 2022-07-20 05:01:[address] [facility] DISCLOSURE AND CONSENT 2022-07-20 05:01:00 [facility] [place] [facility] PROCEDURES - HYSTEY DISCLOSURE AND CONSENT 2022-07-10 05:01:00 Doctor Unassigned, Un [facility] [place] [facility] h PROCEDURES - FEMALM ASSIGNMENT OF BENEFITS 2022-07-07 16:28:28 [facility] XR, knee, 1 or 2 view 2022-04-08 00:00:00 Shanna [facility] XR, knee, 1 or 2 view 2021-10-21 00:00:00 [facility] Arthroplasty of Knee 2021-01-21 00:00:00 Sh[facility] Arthroscopy of Knee [facility] Plan of Care Planned Activity Planned Date Details Comments Source Future Scheduled Test 2022-08-29 COVID-19 Vaccination [facility] 05:43:41 (#1) [code = MD Abran Pelletier cer COVID-19 Vaccination Center (#1)] Instructions Shanna [facility] Encounters Start End Encounter Admission Attending Care Care Encounter Source Date/Time Date/Time Type Type Clinicians Facility Department ID 2022-08-04 Outpatient SYSTEM, [facility] [id number] 13:13:31 PROVIDER Yazan o n 2022-07-14 Outpatient R INGRIS TAVAREZ [facility] 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 [id number] Univers 14:52:17 INGRIS TAVAREZ ity [facility] 2022-09-30 2022-09-30 Outpatient R KIKE [facility] [id number] Univers 10:30:00 10:30:00 DEVAN ity [facility] 2022-09-16 2022-09-16 Orders Doctor KELIN 1.2.840.114 [id number] Univers 00:00:00 00:00:00 Only Unassigned, CHAR 350.1.13.10 ity of [place] [facility] 4.2.7.2.686 Jakob as [id number] [facility] 009 Branch 2022-09-04 2022-09-04 Patient Doctor THOMAS 1.2.693.230 [id number] Univers 00:00:00 00:00:00 Secure Msg Unassigned, Y HEALTH 350.1.13.10 ity [place] [facility] [place] [id number] Medi [address] 2022-09-02 2022-09-02 Patient THOMAS Nichols 1.2.840.114 [id number] Univers 00:00:00 00:00:00 Secure Msg Gus [facility] HEALTH 350.1.13.10 [place] [id number] [address] 2022-08-31 2022-08-31 [id number] Univers 09:30:00 10:50:37 GUS ity of [facility] 2022-08-31 2022-08-31 Office THOMAS Nichols 1.2.840.114 [id number] Univers 09:30:00 10:50:37 Visit Gus M Iker HEALTH 350.1.13.10 i ty [place] [id number] [address] 2022-08-28 2022-08-28 Multidisci Gigi, UNIVERSIT 1.2.840.114 [id number] Univers 00:00:00 00:00:00 plinary Tino Y HEALTH 350.1.13.10 i ty of [place] CL[place] 4.[place].7.2.[place] [id number] [address] 2022-08-27 2022-08-27 Multidisci Nikhil, 1.2.840.1 [id number] Univers 00:00:00 00:00:00 plinary Crystal B 97509.1.1 it y of Visit 3.412.2.7 [place] .3.710782 .[facility] 2022-08-22 2022-08-22 Patient THOMAS Nichols 1.2.840.114 [id number] Univers 00:00:00 00:00:00 Secure Msg Gus Dong HEALTH 350.1.13.10 [place] [id number] [address] 2022-08-13 2022-08-13 Outpatient [facility] [id number] Univers 10:00:00 10:00:00 TINO ity of [facility] 2022-08-12 2022-08-12 [facility] 1.2.512.101 [id number] Univers 00:00:00 00:00:00 Myrtle J SPECIALTY 350.1.13.10 ity [place]2.[place] [id number] [facility] [address] [place] 2022-08-12 2022-08-12 Telephone [facility] 1.2.334.419 [id number] Univers 00:00:00 00:00:00 Ramo SPECIALTY 350.1.13.10 ity [place] 4[place]7.2.[place] [id number] [facility] [address] [place] 2022-08-10 2022-08-10 Outpatient R MAGDALENA [facility] OBO [id number] Univers 09:33:00 20:38:00 GUS ity of [facility] 2022-08-10 2022-08-10 Hospital Kyawholly LACEY 1.2.840.114 [id number] Univers 09:33:00 20:38:00 Encounter Gus PEACOCKY 350.1.13.10 [facility] 4.2.7.2.686 Jakob [place] [id number] [facility] 104 Branch 2022-08-10 2022-08-10 Surgery LACEY Nichols 1.2.840.114 [id number] Univers 12:00:00 16:20:00 Gus Fleming CHAR 350.1.13.10 it y [facility] 42.7.2.686 Jakob as [id number] [facility] 103 Branch 2022-08-10 2022-08-10 Orders Doctor KELIN 1.2.840.114 [id number] Univers 00:00:00 00:00:00 Only Unassigned, CHAR 350.1.13.10 ity of [place] [facility] 4.2.7.2.686 Jakob as [id number] [facility] 009 Branch 2022-08-06 2022-08-06 Outpatient R INGRIS TAVAREZ [facility] U TMB [id number] Univers 13:30:00 13:30:00 [facility] 2022-08-05 2022-08-05 Outpatient R LINSEY [facility] [id number] Univers 15:00:00 15:07:26 AL [facility] 2022-08-05 2022-08-05 Office [facility] 1.2.840.114 [id number] Univers 15:00:00 15:07:26 Visit Al HEALTH 350.1.13.10 it y of [place]2.[place] [id number] [place] [address] [place] OFFICE BUILDING 2022-08-05 2022-08-05 Letter OLIVIA Hatch 1.2.840.114 [id number] Univers 00:00:00 00:00:00 (Out) Tino Y HEALTH 350.1.13.10 i ty [place] [id number] [address] 2022-08-03 2022-08-03 Patient KyawseymouriqraTHOMAS 1.2.840.114 [id number] Univers 00:00:00 00:00:00 Secure Msg Gus M Y HEALTH 350.1.13.10 ity [place] [id number] [address] 2022-07-31 2022-07-31 Outpatient R GIGI [facility] [id number] Univers 08:42:36 23:59:00 TINO ity [facility] 2022-07-31 2022-07-31 Hospital Gigi [facility] 1.2.840.114 [id number] Univers 08:42:36 23:59:00 Encounter Tino HEALTH 350.1.13.10 ity [place] [id number] [address] ([facility]) 2022-07-28 2022-07-28 Patient Magdalena OLIVIA 1.2.840.114 [id number] Univers 00:00:00 00:00:00 Secure Msg Gus M Y HEALTH 350.1.13.10 ity of [place] 4[place] [id number] [facility] [address] [place] 2022-07-27 2022-07-27 Telephone Gigi, UNIVERSIT 1.2.840.114 [id number] Univers 00:00:00 00:00:00 Tino Y HEALTH 350.1.13.10 i ty [place] [id number] [address] 2022-07-27 2022-07-27 Telephone KYUNG Hatch 1.2.840.114 [id number] Univers 00:00:00 00:00:00 Tino H 350.1.13.10 it y of BUILDING 4.2.7.2.686 Jakob as [id number] [address] 2022-07-27 2022-07-27 Telephone Gigi, UNIVERSIT 1.2.840.114 [id number] Univers 00:00:00 00:00:00 Tino Y HEALTH 350.1.13.10 i ty [place] [id number] [address] 2022-07-27 2022-07-27 Patient [facility] 1.2.840.114 [id number] Univers 00:00:00 00:00:00 Secure Msg Gus Fleming Y HEALTH 350.1.13.10 ity of CL[place] 4[place] [id number] [place] [address] [place] 2022-07-23 2022-07-23 [facility] 1.2.840.114 [id number] Univers 14:34:57 23:59:00 Encounter Tino [place] 350.1.13.10 ity [facility] [place] [id number] [address] 2022-07-23 2022-07-23 [facility] 1.2.840.114 [id number] Univers 14:34:47 23:59:00 Encounter Tino [place] 350.1.13.10 ity of [facility] 4.2.7.2.[place] [id number] [address] 2022-07-23 2022-07-23 Office Ramo Sims [facility] 1.2.840.114 [id number] Univers 11:00:00 12:00:00 Visit Frankie Harman SPECIALTY 350.1.13.10 it[place] of [place] [id number] [facility] [address] 2022-07-23 2022-07-23 Outpatient R FRANKIE HARMAN [facility] [id number] Univers 11:00:00 11:00:00 ity of [facility] 2022-07-20 2022-07-20 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 [facility] UNIVERSIT 1.2.840.114 [id number] Univers 12:45:00 13:00:00 Visit Gus Nichols [facility] 350.1.13.1 0 ity of CL[place] [id number] [facility] 316 Branch 2022-07-20 2022-07-20 Outpatient R MAGDALENA [facility] [id number] Univers 10:00:00 12:19:49 [facility] 2022-07-20 2022-07-20 Office OLIVIA Nichols 1.2.840.114 [id number] Univers 10:00:00 12:19:49 Visit [facility] 350.1.13.10 i ty of CL[place] [id number] [facility] [address] [place] 2022-07-20 2022-07-20 Outpatient R INGRIS TAVAREZ [facility] U TMB [id number] Univers 10:30:00 10:30:00 [facility] 2022-07-20 2022-07-20 Prep For Gigi UNIVERSIT 1.2.840.114 1 [id number] Univers 00:00:00 00:00:00 Surgery [facility] 350.1.13.10 i ty of CL[place] [id number] [facility] [address] [place] 2022-07-17 2022-07-17 Telephone THOMAS Curry 1.2.840.114 [id number] Univers 00:00:00 00:00:00 Kirsten Y HEALTH 350.1.13.10 i ty of [place] [id number] [place] [address] [place] 2022-07-16 2022-07-16 Office [facility] 1.2.840.114 [id number] Univers 13:30:00 13:30:00 Visit Ingris allred 350.1.13.10 ity of [place] [id number] [address] 2022-07-16 2022-07-16 Outpatient R INGRIS TAVAREZ [facility] [id number] Univers 13:30:00 13:21:53 BERMUDEZRALPH CORDEROL [facility] 2022-07-15 2022-07-15 Telephone [facility] 1.2.840.11 [id number] Univers 00:00:00 00:00:00 Ingris allred 350.1.13.10 ity of [place] [id number] [address] 2022-07-10 2022-07-10 Outpatient R INGRIS TAVAREZ [facility] U [facility] [id number] Univers 10:30:00 11:15:07 RALPH [facility]AV[facility]ZL [facility] 2022-07-10 2022-07-10 Office BermudezFormerly [facility] 1.2.840.114 [id number] Univers 10:30:00 11:00:00 Visit Ingris allred 350.1.13.10 ity of [place] [id number] [address] 2022-07-10 2022-07-10 Orders Doctor NEVILLE 1.2.840.114 [id number] Univers 00:00:00 00:00:00 Only Unassigned, CHAR 350.1.13.10 ity of [place] [facility] 4.2.7.2.686 Jakob as [id number] [address] 2022-07-08 2022-07-08 Tele[facility] 1.2.840.11 4 [id number] Univers 00:00:00 00:00:00 Ingris allred 350.1.13.10 ity of [place] HE[place] [id number] [address] 2022-07-07 2022-07-07 Outpatient R DANA STUART [facility] B [id number] [facility] 11:30:00 13:35:44 [facility] 2022-07-07 2022-07-07 Office [facility] 1.2.840.114 [id number] [facility] 11:30:00 13:35:44 Visit Dana HILL 350.1.13.10 it y of [place] [id number] [address] 2022-07-07 2022-07-07 Telephone [facility] 1.2.840.11 [id number] Univers 00:00:00 00:00:00 Dana HILL 350.1.13.10 it y of [place] [id number] [address] 2022-07-07 2022-07-07 Orders Doctor NEVILLE 1.2.840.114 [id number] Univers 00:00:00 00:00:00 Only Unassigned, HCAR 350.1.13.10 ity of [place] [facility] 4.2.7.2.686 Jakob as [id number] [address] 2022-07-07 2022-07-07 Telephone [facility] 1.2.840.11 4 [id number] Univers 00:00:00 00:00:00 Dana HILL 350.1.13.10 it y of [place] [id number] [address] 2022-04-08 2022-04-08 Outpatient FOG_Burke_R AOSM AOSM [id number] Shanna 00:00:00 00:00:00 Santos [id number] Ortho pe dic Sports Medic[facility] e 2022-04-08 2022-04-08 Mau [place] [facility] [place] - Ortho Shanna 00:00:00 00:00:00 MD Randy: Lilian Anthony - [facility] [address] FOG_Ofc dic Tarah, [facility] [address], [place] [address] , Ph. [phone] 2021-12-10 2021-12-10 Outpatient FOG_Burke_R AOSM AOSM [id number] Shanna 00:00:00 00:00:00 Santos [id number] Ortho pe dic Sports Medicin e 2021-12-10 2021-12-10 Outpatient FOG_Burke_R AOSM AOSM [id number] Shanna 00:00:00 00:00:00 Santos [id number] Ortho pe dic Sports Medicin e 2021-12-10 2021-12-10 Outpatient FOG_Burke_R AOSM AOSM [id number] Shanna 00:00:00 00:00:00 Santos [id number] Ortho pe dic Sports Medicin e 2021-12-10 2021-12-10 Outpatient FOG_Burke_R AOSM AOSM [id number] Shanna 00:00:00 00:00:00 Santos [id number] [facility] 2021-10-21 2021-10-21 Outpatient FOG_Burke_R AOSM AOSM [id number] Shanna 00:00:00 00:00:00 Santos [id number] [facility] 2021-10-21 2021-10-21 Outpatient Padilla, AOSM AOSM [id number] 00:00:00 00:00:00 Mau San [id number] 2021-10-21 2021-10-21 Mau San AOSM [place] - Ortho Shanna 00:00:00 00:00:00 MD Randy: Lilian Barron [facility] [address], [place] [address] , Ph. [phone] 2021-10-18 2021-10-18 Outpatient FOG_Burke_R AOSM AOSM [id number] Shanna 00:00:00 00:00:00 Santos [id number] [facility] 2021-10-16 2021-10-16 Outpatient FOG_Burke_R AOSM AOSM [id number] Shanna 00:00:00 00:00:00 Santos [id number] [facility] 2021-09-02 2021-09-02 Outpatient FOG_Burke_R AOSM AOSM [id number] Shanna 00:00:00 00:00:00 Santos [id number] [facility] 2021-07-16 2021-07-16 Outpatient FOG_Burke_R AOSM AOSM [id number] Shanna 10:09:00 10:09:00 Santos [id number] [facility] 2021-07-15 2021-07-15 Outpatient FOG_Burke_R AOSM AOSM [id number] Shanna 02:13:00 02:13:00 Santos [id number] [facility] 2021-07-15 2021-07-15 Mau GARCIA [place] - Ortho Shanna 00:00:00 00:00:00 MD Randy: Lilian Barron [facility] [address], [place] [address] , Ph. [phone] 2021-07-15 2021-07-15 Outpatient JOSE Padilla [id number] 00:00:00 00:00:00 Mau San [id number] 2021-01-21 2021-01-22 [id number] 57 [facility] 07:32:00 12:43:00 [facility]au [facility] 2021-01-13 2021-01-13 Outpatient JONY Padilla LABO [id number] [facility] 17:07:00 17:07:00 Mau 63 [facility] Results Test Description Test Time Test Comments Results Result [facility] e Comments - XR KNEE 1 OR 2 V 2021-01-22 RT 12:49:00 [facility] : 1955 Sex: F Patient Name: SHAYNE MAGANA Unit No: [id number] EXAMS: CPT CODE: [id number] XR KNEE 1 OR 2 V RT 05115 IMAGES PROVIDED: 2 FINDINGS: Postoperative changes from right total knee arthoplasty demonstrated without evidence of immediate complication. No acute fracture is visualized. IMPRESSION: Postoperative exam as above. at 1249 Reported and signed by: Gorge Ernandez M.D. CC: Mau Padilla MD Technologist: JUS BOYLE. RT(R) Transcribed D/ (1249) tLOLIS.J [facility] NAME: SHAYNE MAGANA [address] [facility] [address] PHYS: Mau Martin MD : 1955 AGE: 65 SEX: F [place] [address] LOC: Y.310 A PHONE #: [phone] EXAM DATE: 01/21/2021 STATUS: DIS IN FAX #: [phone] RAD #: [id number] D/C DT 01/22/2021 PAGE 1 Signed Report Patient Name: SHAYNE MAGANA Unit No: [id number] EXAMS: CPT CODE: [id number] XR KNEE 1 OR 2 V RT 57777 (Continued) Orig Print D/T: S: 01/22/2021 (1252) [facility] NAME: SHAYNE MAGANA [address] [facility] PHYS: Mau Martin MD : 1955 AGE: 65 SEX: F [place], [place] [address] LOC: Y.310 A PHONE #: [phone] EXAM DATE: 01/21/2021 STATUS: DIS IN FAX #: [phone] RAD #: [id number] D/C DT 01/22/2021 PAGE 2 Signed Report [...] of measure: mL/min/1.73 (test code = GFR) [id number] e Range:Healthy Adults >90 mL/m in/1.73 m2 For Chronic Kidney Disease: Stage II Mild Decreas e in GFR 60-90 Stage III Moder ate Decrease in GFR 30-59 St age IV Severe Decrease in GFR 15-29 Stage V Kidney Failure <15 CREATININE (test code = CREAT) 0.86 mg/dL 0.55-1.30 N CALCIUM (test code = CA) 8.9 mg/dL 8.2-10.1 N SPECIMEN COMMENT: POD #[id number] 06:07:00 Test Item Value Reference Range Interpretation Comments HEMOGLOBIN (test code = HGB) 12.8 g/dL 12-16 N HEMATOCRIT (test code = HCT) 41.3 % 37-47 N SPECIMEN COMMENT: POD #1Novel Coronavirus 2019 [id number] 03:17:00 Test Item Value Reference Range Interpretation [...] n. The testing is perf ormed by heriberto houser in the procedures for the [employer] M2000 molecular diagnostic SARS-CoV-2 assa y in vitro. Novel Coronavirus 2018 [id number] 03:17:00 Test Item Value Reference Range Interpretation [...] for the identification of SARS-CoV-2 RNA usingthe [employer] M2000 Sy stem under the FDA Emergen cy UseAuthorizatio n. The testing is perf ormed by personneltraine d in the procedures for the [employer] M2000 molecular diagnostic SARS-CoV-2 assa y in vitro. COMPREHENSIVE METABOLIC [id number] 13:43:00 Test Item Value Reference Range Interpretation [...] RATE (test code = GFR) mL/mi n/1.73 o3Bvhxazjcm Range:Healthy Adults >90 mL/min/1.73 m2 For Chronic [...] TOTAL (test code = ALKP) CBC W/AUTO [id number] 13:43:00 Test Item Value Reference Range Interpretation [...] Notes Date/Time Note Provider Source 2021-01-22 09:51:00-00:00 [facility] Clinical Note REPORT#:[id number] REPORT STATUS: Signed DATE:01/22/21 TIME: 950 PATIENT: SHAYNE MAGANA UNIT #: [id number] ROOM/BED: [address] : [birth year] AGE: 65 SEX: F ATTEND: Cesario Padilla MD ADM AUTHOR: Frankie Tao MD * ALL edits or amendments must be made on the el Ynsect/computer document * Clinical Note Note: [facility] Frankie chris M.D. (cell text [phone]) Assessment/Plan 1.) Anemia of acute blood loss- [...] e DF/PF Other: Labs/X-ray: Laboratory Tests: 01/22 0200 Chemistry Sodium (136 - 145 mmol/L) 140 [...] 41.3 Frankie River M.D. at 1117 RPT #:[id number] END OF REPORT 2021-01-22 09:10:00-00:00 [facility] Discharge Summary REPORT#:[id number] REPORT STATUS: Signed DATE:01/22/21 TIME: 909 PATIENT: SHAYNE MAGANA UNIT #: [id number] [facility]ED: [facility] : [facility] AGE: 65 SEX: F ATTEND: Cesario Padilla MD ADM AUTHOR: Leana Varner * ALL edits or amendments must be made on the [employer]/computer document * General Information Date of admission: [...] physician follow up timeframe: In 1-2 weeks at 0913 Electronically Signed by Mau Padilla MD on at 1526 RPT #:[id number] END OF REPORT 2021-01-21 16:44:00-00:00 [facility] Clinical Note REPORT#:[id number] REPORT STATUS: Signed DATE:01/21/21 TIME: 1643 PATIENT: SHAYNE MAGANA UNIT #: [id number] [facility]OM[facility]BED: [facility] : [address] AGE: 65 SEX: F ATTEND: Cesario Padilla MD ADM AUTHOR: Frankie Tao MD * ALL edits or amendments must be made on the el [employer]/computer document * Clinical Note Note: [facility] Frankie chris MD (cell text [phone]) Internal Medicine Consult at request of : [...] BMI 49.3, osteoarthritis ALLERGY: Allergies: levofloxacin (From LEVAQUIN) (Coded, Mild, RASH- UNKNOWN, 01/21/21) Home Medications: [...] Resp B/P B/P Mean Pulse Ox FiO2 01/21 97.5-98.5 78-85 14-18 133-166/69-85 105.8 -106.3 [...] Plt 252, CHEM: Na 143, K 4.5, Cr 0.73 (eGFR 79.8%), . Ekg: NSR (medium [...] Thanks! G8427 - current medications obtained and reviewe juana G8730 - pain assessment with tool and followup p ernestine 1126F - offered discussion o n advanced care plan and patient declined to address issue at this time. at 2216 [facility] #:[id number] END OF REPORT 2021-01-21 12:37:00-00:00 [id number] [facility] [place] [address] PATIENT NAME: SHAYNE MAGANA ADMIT DATE: 1 ACCOUNT NO: [id number] ROOM NO: Y.310 AGE: 65 REPORT TYPE: OPERATIVE REPORT SEX: F ADMITTING PHYSICIAN:Mau Padilla MD ATTENDING PHYSICIAN:Mau Padilla MD OPERATION DATE: 01/21/2021 PREOPERATIVE DIAGNOSIS: Right knee osteoarthropa thy. POSTOPERATIVE DIAGNOSIS: Right knee osteoarthrop athy, M17.11. OTHER DIAGNOSIS NOTED: Morbid obesity. OPERATIVE PROCEDURES PERFORMED: 1. Computer-assisted imageless right total knee arthroplasty, 54757. 2. 67408. 3. A 22 modifier secondary to morbid obesity req uiring the second surgical orderly for surgical exposure. SURGEON: Mau Padilla MD CANDY ATTENDANT: RENE Bryant TEACHER TUTOR: ANESTHESIA: General. TOURNIQUET TIME: 26 minutes. ESTIMATED BLOOD LOSS: 55 mL. OPERATIVE FINDINGS: Severe grade 4 osteoarthriti s, right knee. SURGICAL SPECIMEN SENT: None. CLINICAL INDICATIONS: Ms. Ti sampson is a very pleasant 65-year-old female from [place], [place], who has been having severe and [...] with a requi rement of a second surgical orderly for surgical exposure. OPERATIVE NARRATIVE: 1. COMPUTER-ASSISTED IMAGELESS RIGHT TOTAL KNEE ARTHROPLASTY, 31045. 2. 82638. PATIENT NAME: SHAYNE MAGANA 771 Ms. Magana [...] was then resected so as to ensure anglican of its normal height with prosthesis in [...] By: Mau Padilla MD WT: OP:ARSH/DORY/MARCELA Conf#: [id number]/DID#: [id number] Authenticated by Mau Padilla MD On 06:32:33 AM at 0632 PATIENT NAME: SHAYNE MAGANA 771 2021-01-21 10:48:00-00:00 [facility]) Brief Op Note REPORT#:[id number] REPORT STATUS: Signed DATE:01/21/21 TIME: 1048 PATIENT: SHAYNE MAGANA UNIT #: [id number] ROOM/BED: [place] [address] : 54 AGE: 65 SEX: F ATTEND: Cesario Padilla MD ADM AUTHOR: Leana Varner * ALL edits or amendments must be made on the el ectronic/computer document * Op/Inv Proc Note - Brief Pre-procedure diagnosis: Right Knee Arthritis Post-procedure diagnosis: same as pre procedure dx Procedures performed: Right Total Knee Arthroplasty Primary Surgeon: Randy Compensation And Benefits Administrator(s): Gardenia HALEY Findings: as above Complications: none Estimated blood loss in ml's: 25cc Specimens removed/altered: none at 1049 Electronically Signed by Mau Padilla MD on at 1237 RPT #:[id number] END OF REPORT 2021-01-19 17:38:00-00:00 [id number] [place], [place] [address] PATIENT NAME: SHAYNE MAGANA ADMIT DATE: ACCOUNT NO: [id number] ROOM NO: AGE: 65 REPORT TYPE: HISTORY [...] of the procedure. She understands that sh travis would receive a rotating platform posterior cruciate sacrificing total kn ee arthroplasty. Ms. Magana accepts these risks and gives her informed conse nt to proceed. Dictated By: Mau Padilla MD WT: HP:ARSH/DORY/MARCELA Conf#: [id number]/DID#: [id number] Authenticated by Mau Padilla MD On 08:27:18 AM at 0827 PATIENT NAME: SHAYNE MAGANA 771 2021-01-13 11:48:00-00:00 [id number] [place] [address] PATIENT NAME: SHAYNE MAGANA ADMIT DATE: ACCOUNT NO: [id number] ROOM NO: AGE: 65 REPORT TYPE: ELECTROCARDIOGRAM SEX: F ADMITTING PHYSICIAN: ATTENDING PHYSICIAN:Mau Padilla MD Order: [id number] Test Reason : PREOP CLEARANCE / AGE>50 [...] ECGs available Confirmed by GRETA WASHINGTON MD ([id number]) on 01/16/2021 11:45:27 AM Referred By: Mau Padilla Confirmed by:GRETA WASHINGTON MD Electronically Signed by Greta Washington MD on 04/07 at 1145 PATIENT NAME: SHAYNE MAGANA Geovanny 771
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
[2022-10-07] MEDS ORDERED: MORPHINE 4 MG/ML SYR ONE (19:40)
[2022-10-07] MEDS ORDERED: ONDANSETRON 4 MG/2 ML VIAL ONE (19:40)
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
[2022-10-07] MEDS ORDERED: HYDROCODONE/APAP 10/325 TAB ONE (20:14)
[2022-10-07 21:12] VITALS: BP 147/82; TEMP 97.8; O2SAT 94
== END 2022-10-07 20:36 | disposition home or self-care (01) ==
LOC: ER 17:22
DX: S52.512A Displaced fracture of left radial styloid process, initial encounter for closed fracture (principal); S22.32XA Fracture of one rib, left side, initial encounter for closed fracture; S32.019A Unspecified fracture of first lumbar vertebra, initial encounter for closed fracture; S32.029A Unspecified fracture of second lumbar vertebra, initial encounter for closed fracture; S20.211A Contusion of right front wall of thorax, initial encounter; S80.02XA Contusion of left knee, initial encounter; S80.01XA Contusion of right knee, initial encounter; M25.572 Pain in left ankle and joints of left foot; M25.512 Pain in left shoulder; V49.40XA Driver injured in collision with unspecified motor vehicles in traffic accident, initial encounter; E03.9 Hypothyroidism, unspecified; Z88.1 Allergy status to other antibiotic agents
CPT/HCPCS: 82565; 70450; 72125; 71260; 74177; 73090; 73030; 73562 ×2; 73610; Q9967; J2405